=== PATIENT | male | born 1945 | race African-American/Black ===

== ENCOUNTER 2017-06-08 17:44 | Inpatient (IN) | payer OTHER ==
--- OUTSIDE RECORDS SUMMARY | 2017-06-08 17:46 | XMS REPORT | Clinical Summary ---
:1945 Author Organization [facility] Address [address] [place] [id number] Care Team Providers Name Role Phone Asked, No Pcp Primary Care Provider Unavailable Allergies No Known Allergies Current Medications No known medications Active Problems Not on file Social History Tobacco Use Types Packs/Day Years Used Date Never Smoker Alcohol Use Drinks/Week oz/Week Comments No Sex Assigned at Date Recorded Not on file Last Filed Vital Signs Not on file Plan of Treatment Health Maintenance Due Date Last Done Comments COLONOSCOPY 1997 ZOSTER VACCINE 2007 PNEUMOCOCCAL POLYSACCHARIDE VACCINE AGE 65 AND OVER 2012 PNEUMOCOCCAL-13 2012 INFLUENZA VACCINE 09/21/2017 Results Not on fileafter 06/07/2016 Insurance Payer Benefit Plan / Group Subscriber ID Type Phone Address AETNA AETNA PPO OPEN CHOICE xxxxxxxxxx PPO AETNA MEDICARE AETNA MEDICARE HMO/PPO MCR xxxxxxxxx HMO Home: [address] [phone] [place], [place] [phone]
[2017-06-08 18:38] LABS: Urine Appearance CLOUDY; Urine Bilirubin NEGATIVE (NEG); Urine Blood 3+ (NEG); Urine Color RED; Urine Glucose NEGATIVE (NEG); Urine Protein 3+ (NEG); Urine Urobilinogen 0.2 mg/dL (0.2-1.0); Urine pH 5.5 (5.0-7.0)
[2017-06-08 18:42] LABS: Urine Microscopic Reflex ORDER UMIC
[2017-06-08 18:44] LABS: Urine Bacteria <20 /HPF (NONE SEEN); Urine Culture Reflex Order REFLEXED; Urine RBC TNTC /HPF (NONE SEEN)
[2017-06-08] MEDS ORDERED: CIPROFLOXACIN 400mg IV 400 MG/200 ML BAG IV ONE (18:46)
[2017-06-08] MEDS ORDERED: FENTANYL CITR 100 MCG/2 ML ONE (18:46)
[2017-06-08] MEDS ORDERED: NA CHLORIDE 0.9% 2,000 ML ONE (18:46)
[2017-06-08] MEDS ORDERED: LIDOCAINE VISCOUS 2% SOLN 15 ML UDC ONE (18:46)
[2017-06-08 19:19] LABS: Absolute Lymphocytes (CBC) 0.3 K/uL (0.7-4.9); Absolute Monocytes 0.1 K/uL (0.1-1.3); Basophils % 0.2 % (0-1.3); Eosinophils % 0.4 % (0-4.4); Hematocrit 37.5 % (39.6-49.0); Lymphocytes % 4.3 % (15.3-44.8); MCH 25.8 pg (27.0-35.0); MPV 8.7 fL (7.6-11.3); Monocytes % 0.8 % (3.3-12.3); RBC Red Blood Cell Count 4.75 M/uL (4.33-5.43)
[2017-06-08 19:25] LABS: Protime INR 1.08
[2017-06-08 19:31] LABS: Bicarbonate 23 mEq/L (21-31); Glucose Level 166 mg/dL (65-120); Potassium 4.1 mEq/L (3.6-5.0); Sodium Level 132 mEq/L (135-145)
[2017-06-08 19:37] LABS: ALT/SGPT 20 IU/L (10-60); AST/SGOT 23 IU/L (10-42); Albumin 3.9 g/dL (3.2-5.5); Alkaline Phosphatase 41 IU/L (42-121); BUN Blood Urea Nitrogen 18 mg/dL (6-20); Bilirubin Direct < 0.1 mg/dL (0-0.2); Bilirubin Total 0.4 mg/dL (0.3-1.2); Creatine Phosphokinase 245 IU/L (22-269); Protein, Total 6.7 g/dL (6.0-8.3)
--- NOTE | 2017-06-08 20:04 | EDPHYS ---
Physician Documentation [facility] Name: Allan Cam Jr Age: 72 yrs Sex: Male : 1945 Arrival Date: 06/08/2017 Time: 17:46 Bed 18 Private MD: Tahira Edge H ED Physician Tomas Ozuna HPI: 06/08 18:59 This 72 yrs old Black Male presents to ER via Ambulatory with complaints of Urinary snw Problem. 18:59 The patient presents with urinary symptoms, dysuria, urinary frequency, incontinence of snw urine. Onset: The symptoms/episode began/occurred suddenly, at 01:00, and became worse and became persistent. Associated signs and symptoms: Pertinent positives: dysuria, fever, hematuria. Severity of symptoms: At their worst the symptoms were moderate, severe. The patient has not experienced similar symptoms in the past. The patient has not recently seen a physician, to have procedure per Dr. Weinberg tomorrow. Pt with prostate CA, several biopsies have been done. Daughter called Dr. Weinberg this am and was told to bring pt to ED. Historical: - Allergies: 17:54 No Known Allergies; hj - PMHx: 17:54 prostate cancer; Hypertension; Diabetes - NIDDM; hj - PSHx: 17:54 None; hj - Immunization history:: Adult Immunizations up to date. - Social history:: Smoking status: Patient/guardian denies using tobacco. ROS: 18:58 Eyes: Negative for injury, pain, redness, and discharge, ENT: Negative for injury, snw pain, and discharge, Neck: Negative for injury, pain, and swelling. 18:58 Cardiovascular: Negative for chest pain, palpitations, and edema, Respiratory: Negative for shortness of breath, cough, wheezing, and pleuritic chest pain, Abdomen/GI: Negative for abdominal pain, nausea, vomiting, diarrhea, and constipation, Back: Negative for injury and pain, MS/Extremity: Negative for injury and deformity, Skin: Negative for injury, rash, and discoloration, Neuro: Negative for headache, weakness, numbness, tingling, and seizure. 18:58 Constitutional: Positive for body aches, chills, fatigue, fever, malaise. 18:58 : Positive for urinary symptoms, urinary frequency, small amounts, hematuria, burning with urination. Exam: 18:58 Head/Face: Normocephalic, atraumatic. Eyes: Pupils equal round and reactive to light, snw extra-ocular motions intact. Lids and lashes normal. Conjunctiva and sclera are non-icteric and not injected. Cornea within normal limits. Periorbital areas with no swelling, redness, or edema. ENT: Nares patent. No nasal discharge, no septal abnormalities noted. Tympanic membranes are normal and external auditory canals are clear. Oropharynx with no redness, swelling, or masses, exudates, or evidence of obstruction, uvula midline. Mucous membranes moist. Neck: Trachea midline, no thyromegaly or masses palpated, and no cervical lymphadenopathy. Supple, full range of motion without nuchal rigidity, or vertebral point tenderness. No Meningismus. Chest/axilla: Normal chest wall appearance and motion. Nontender with no deformity. No lesions are appreciated. Cardiovascular: Regular rate and rhythm with a normal S1 and S2. No gallops, murmurs, or rubs. Normal PMI, no JVD. No pulse deficits. Respiratory: Lungs have equal breath sounds bilaterally, clear to auscultation and percussion. No rales, rhonchi or wheezes noted. No increased work of breathing, no retractions or nasal flaring. Abdomen/GI: Soft, non-tender, with normal bowel sounds. No distension or tympany. No guarding or rebound. No evidence of tenderness throughout. Back: No spinal tenderness. No costovertebral tenderness. Full range of motion. Skin: Warm, dry with normal turgor. Normal color with no rashes, no lesions, and no evidence of cellulitis. MS/ Extremity: Pulses equal, no cyanosis. Neurovascular intact. Full, normal range of motion. Neuro: Awake and alert, GCS 15, oriented to person, place, time, and situation. Cranial nerves II-XII grossly intact. Motor strength 5/5 in all extremities. Sensory grossly intact. Cerebellar exam normal. Normal gait. 18:58 Constitutional: The patient appears alert, awake. Vital Signs: 17:55 BP 127 / 62; Pulse 105; Resp 18; Temp 97.6(TE); Pulse Ox 97% on R/A; Weight 88.45 kg; hj Height 5 ft. 10 in. (177.80 cm); Pain 3/10; 18:23 BP 127 / 69; Pulse 102; Resp 20; Temp 97.2(TE); Pulse Ox 96% on R/A; mh5 19:00 BP 124 / 65; Pulse 95; Resp 20; Temp 100.5(O); Pulse Ox 96% on R/A; mh5 20:00 BP 123 / 63; Pulse 79; Pulse Ox 97% on R/A; bs1 21:00 BP 107 / 60; Pulse 88; Pulse Ox 97% on R/A; bs1 22:00 BP 111 / 58; Pulse 88; Pulse Ox 99% on R/A; bs1 22:52 BP 157 / 76; Pulse 74; Temp 99.1; Pulse Ox 100% on R/A; bs1 17:55 Body Mass Index 27.98 (88.45 kg, 177.80 cm) hj MDM: 18:04 Patient medically screened. snw 20:04 Data reviewed: vital signs, nurses notes. Data interpreted: Pulse oximetry: on room air snw is 96 %. Interpretation: normal. Counseling: I had a detailed discussion with the patient and/or guardian regarding: the historical points, exam findings, and any diagnostic results supporting the discharge/admit diagnosis, lab results, radiology results, the need for further work-up and treatment in the hospital. Physician consultation: Valerie Almanza MD was called at 20:04, was contacted at 20:04, regarding admission, to the medical/surgical unit. 06/08 18:19 Order name: UA; Complete Time: 18:49 em 06/08 18:19 Order name: Urine Microscopic Only; Complete Time: 18:49 em 06/08 18:29 Order name: Urine Culture snw 06/08 18:29 Order name: CPK snw 06/08 18:29 Order name: Basic Metabolic Panel snw 06/08 18:29 Order name: Blood Culture Adult (2) snw 06/08 18:29 Order name: BNP; Complete Time: 19:47 snw 06/08 18:29 Order name: CBC with Diff; Complete Time: 21:09 snw 06/08 18:29 Order name: Lactate; Complete Time: 19:40 snw 06/08 18:29 Order name: LFT's; Complete Time: 19:40 snw 06/08 18:29 Order name: Procalcitonin; Complete Time: 19:56 snw 06/08 18:29 Order name: Protime (+inr); Complete Time: 19:37 snw 06/08 18:29 Order name: Ptt, Activated; Complete Time: 19:37 snw 06/08 18:29 Order name: Sed Rate; Complete Time: 21:09 snw 06/08 18:29 Order name: Chest Single View XRAY; Complete Time: 20:12 snw 06/08 18:29 Order name: Accucheck; Complete Time: 19:39 snw 06/08 18:30 Order name: Urine Culture EDMS 06/08 18:30 Order name: Creatine Phosphokinase; Complete Time: 19:40 EDMS 06/08 18:30 Order name: Basic Metabolic Panel; Complete Time: 19:40 EDMS 06/08 20:13 Order name: US Rp Exam Complete snw 06/08 20:57 Order name: Manual Differential; Complete Time: 21:09 EDMS 06/08 21:25 Order name: US; Complete Time: 21:29 EDMS 06/08 18:29 Order name: Cardiac monitoring; Complete Time: 20:23 snw 06/08 18:29 Order name: EKG - Nurse/Tech; Complete Time: 20:23 snw 06/08 18:29 Order name: IV Saline Lock - Large Bore; Complete Time: 19:39 snw 06/08 18:29 Order name: Labs collected and sent; Complete Time: 19:39 snw 06/08 18:29 Order name: O2 Per Protocol; Complete Time: 19:39 snw 06/08 18:29 Order name: O2 Sat Monitoring; Complete Time: 19:39 snw 06/08 18:29 Order name: Urine Dipstick-Ancillary (obtain specimen); Complete Time: 19:39 snw 06/08 18:29 Order name: Three way - tamayo cath; Complete Time: 18:37 snw Administered Medications: 19:00 Drug: NS 0.9% (30 ml/kg) 30 ml/kg Route: IV; Rate: bolus; Site: right antecubital; em 21:51 Follow up: IV Status: Completed infusion bs1 19:00 Drug: fentaNYL (PF) 25 mcg Route: IVP; Site: right antecubital; iw 21:51 Follow up: Response: No adverse reaction bs1 19:15 Drug: Ciprofloxacin 400 mg Volume: 200 ml; Route: IVPB; Infused Over: 60 mins; Site: em right antecubital; 21:51 Follow up: IV Status: Completed infusion bs1 19:37 Drug: Viscous Lidocaine Liquid (4 %) 10 ml Route: Mucous Membrane; em 19:38 Follow up: Response: No adverse reaction em 20:22 Drug: Rocephin 1 grams Route: IV; Rate: calculated rate; Site: right antecubital; bs1 21:51 Follow up: IV Status: Completed infusion bs1 20:22 Drug: NS 0.9% 1000 ml Route: IV; Rate: 125 ml/hr; Site: right antecubital; bs1 22:37 Follow up: IV Status: Infusion continued upon admission bs1 20:32 Drug: Uromatic Irrigation - NS 0.9% 1 units {Note: tamayo irrigation.} Volume: 2000 ml; bs1 Route: IV; Rate: calculated rate; Site: Other; 22:37 Follow up: IV Status: Completed infusion bs1 Disposition: 06/08/17 20:03 Hospitalization ordered by Valerie Almanza for Inpatient Admission. Preliminary diagnosis are Sepsis, unspecified organism, Hematuria. - Bed requested for Telemetry/MedSurg (Inpatient). - Status is Inpatient Admission. bs1 - Condition is Stable. - Problem is new. - Symptoms are unchanged. UTI on Admission? Yes Addendum: 06/11/2017 06:23 Co-signature as Attending Physician, Tomas Ozuna MD Available for consultation at p s1 all times. . Signatures: Dispatcher [employer] EDMO Christine Duffy, HOMER-C TREATING PLANT OPERATOR-Csnw Lily Blount, RN RN Tree Barrera, LIFE SKILLS WORKER LIFE SKILLS WORKER em Meena Kaur RN BETTIE Osmin Lopez RN RN hj Singer, Phillip, MD MD [facility] Enriqueta Cook RN RN bs1 Corrections: (The following items were deleted from the chart) 06/08 18:52 18:43 Urine Microscopic Only ordered. EDMS EDMS
--- NOTE | 2017-06-08 20:04 | ER ---
Nurse's Notes [facility] Name: Allan Cam Jr Age: 72 yrs Sex: Male : 1945 Arrival Date: 06/08/2017 Time: 17:46 Bed 18 Private MD: Tahira Edge H Diagnosis: Sepsis, unspecified organism;Hematuria Presentation: 06/08 17:52 Presenting complaint: Patient states: i noticed fresh blood with clots last night in my hj pee; it hurts when i pee; reports fever and chills; hx of prostates cancer being followed up with a urologist;. Transition of care: patient was not received from another setting of care. Onset of symptoms was June 08, 2017. Initial Sepsis Screen: Does the patient meet any 2 criteria? No. Patient's initial sepsis screen is negative. Does the patient have a suspected source of infection? No. Patient's initial sepsis screen is negative. Care prior to arrival: None. 17:52 Method Of Arrival: Ambulatory 17:52 Acuity: MIO 3 hj Triage Assessment: 17:54 General: Appears in no apparent distress. uncomfortable, Behavior is calm, cooperative, hj appropriate for age. Pain: Complains of pain in pelvis Pain currently is 3 out of 10 on a pain scale. Historical: - Allergies: 17:54 No Known Allergies; hj - PMHx: 17:54 prostate cancer; Hypertension; Diabetes - NIDDM; hj - PSHx: 17:54 None; hj - Immunization history:: Adult Immunizations up to date. - Social history:: Smoking status: Patient/guardian denies using tobacco. Screenin:19 Abuse screen: Denies threats or abuse. Nutritional screening: No deficits noted. em Tuberculosis screening: No symptoms or risk factors identified. Fall Risk None identified. Assessment: 18:10 General: Appears in no apparent distress. uncomfortable, Behavior is calm, cooperative, em Reports chills for 0-12 hours, Denies fever. Pain: Complains of pain in pelvis Pain currently is 2 out of 10 on a pain scale. Quality of pain is described as burning, Pain began last night. Neuro: Level of Consciousness is awake, alert, obeys commands, Oriented to person, place, time, situation. Cardiovascular: Denies chest pain, Capillary refill < 3 seconds Patient's skin is warm and dry. Respiratory: Airway is patent Respiratory effort is even, unlabored, Respiratory pattern is regular, symmetrical, Breath sounds are clear bilaterally. GI: Abdomen is round non-distended, Patient currently denies nausea, vomiting. : Urine is jr blood, Reports burning with urination, since last night pain hematuria. EENT: No signs and/or symptoms were reported regarding the EENT system. Derm: Skin is intact, Skin is pink, warm \T\ dry. Musculoskeletal: Range of motion: intact in all extremities. 18:10 General: Reports called urologist this morning after bleeding and was instructed to go em to the ER and would be scene in the ER by urologist. 18:25 Reassessment: Patient appears in no apparent distress at this time. I agree with the iw above assessment by Tree Barrera LVN. 19:05 Reassessment: Report received by STORM Leavitt patient AOx3, no distress noted at this bs1 time. 20:05 Reassessment: Patient appears in no apparent distress at this time. No changes from bs1 previously documented assessment. Patient and/or family updated on plan of care and expected duration. Pain level reassessed. Patient is alert, oriented x 3, equal unlabored respirations, skin warm/dry/pink. 20:32 Reassessment: Started bladder irrigation, patient tolerating well, small clots noted in bs1 Tamayo bag. 20:41 Reassessment: Lab reported crital bands 15%, informed Hospitalist. bs1 21:30 Reassessment: Patient appears in no apparent distress at this time. No changes from bs1 previously documented assessment. Patient and/or family updated on plan of care and expected duration. Pain level reassessed. Patient is alert, oriented x 3, equal unlabored respirations, skin warm/dry/pink. Tamayo irrigation, tolerating well. 21:35 Reassessment: Per verbal order from CLINICAL SALES CONSULTANT Tati Medina to just give total of 2,000cc bs1 bolus of sepsis protocol instead of 600ml more. Gave order for maintenance fluids at 125ml/hr NS. Vital Signs: 17:55 BP 127 / 62; Pulse 105; Resp 18; Temp 97.6(TE); Pulse Ox 97% on R/A; Weight 88.45 kg; hj Height 5 ft. 10 in. (177.80 cm); Pain 3/10; 18:23 BP 127 / 69; Pulse 102; Resp 20; Temp 97.2(TE); Pulse Ox 96% on R/A; mh5 19:00 BP 124 / 65; Pulse 95; Resp 20; Temp 100.5(O); Pulse Ox 96% on R/A; mh5 20:00 BP 123 / 63; Pulse 79; Pulse Ox 97% on R/A; bs1 21:00 BP 107 / 60; Pulse 88; Pulse Ox 97% on R/A; bs1 22:00 BP 111 / 58; Pulse 88; Pulse Ox 99% on R/A; bs1 22:52 BP 157 / 76; Pulse 74; Temp 99.1; Pulse Ox 100% on R/A; bs1 17:55 Body Mass Index 27.98 (88.45 kg, 177.80 cm) ED Course: 17:46 Patient arrived in ED. mr 17:47 Tahira Edge DO is Private Physician. mr 17:54 Triage completed. hj 17:55 Arm band placed on right wrist. hj 18:03 Christine Duffy FNP-C [facility]. snw 18:03 Tomas Ozuna MD is Attending Physician. snw 18:16 Tree Barrera LVN is Primary Nurse. em 18:19 Patient has correct armband on for positive identification. Placed in gown. Bed in low em position. Call light in reach. Side rails up X 1. Adult w/ patient. 18:23 Urine Microscopic Only Sent. mh5 18:23 UA Sent. mh5 18:25 Urine collected: clean catch specimen, jr blood. mh5 18:55 Inserted saline lock: 20 gauge in right antecubital area, using aseptic technique. em Blood collected. 18:55 Initial lab(s) drawn, by me, sent to lab. First set of blood cultures drawn by me. em 18:55 No provider procedures requiring assistance completed. em 19:03 Pillow given. Pulse ox on. NIBP on. mh5 19:10 Second set of blood cultures drawn by me. em 19:30 3-way catheter inserted, using sterile technique, 20 Fr. Specimen obtained. Returned em bloody urine. 19:37 Notified Nurse Practitioner and/or Physician Back Maker of a critical lab result(s), kl Lactate 21.5. 20:02 Chest Single View XRAY In Process Unspecified. EDMS 20:03 Valerie Almanza MD is Hospitalizing Provider. snw 20:10 Urine Culture Sent. cc 20:10 Urine Culture Sent. cc 20:44 Ultrasound completed. Patient tolerated well. cy 20:57 Notified the Hospitalist of a critical lab result(s), Bands 15% Notified Dr Joel. bs1 23:02 Patient admitted, IV remains in place. intact. bs1 Administered Medications: 19:00 Drug: NS 0.9% (30 ml/kg) 30 ml/kg Route: IV; Rate: bolus; Site: right antecubital; em 21:51 Follow up: IV Status: Completed infusion bs1 19:00 Drug: fentaNYL (PF) 25 mcg Route: IVP; Site: right antecubital; iw 21:51 Follow up: Response: No adverse reaction bs1 19:15 Drug: Ciprofloxacin 400 mg Volume: 200 ml; Route: IVPB; Infused Over: 60 mins; Site: em right antecubital; 21:51 Follow up: IV Status: Completed infusion bs1 19:37 Drug: Viscous Lidocaine Liquid (4 %) 10 ml Route: Mucous Membrane; em 19:38 Follow up: Response: No adverse reaction em 20:22 Drug: Rocephin 1 grams Route: IV; Rate: calculated rate; Site: right antecubital; bs1 21:51 Follow up: IV Status: Completed infusion bs1 20:22 Drug: NS 0.9% 1000 ml Route: IV; Rate: 125 ml/hr; Site: right antecubital; bs1 22:37 Follow up: IV Status: Infusion continued upon admission bs1 20:32 Drug: Uromatic Irrigation - NS 0.9% 1 units {Note: tamayo irrigation.} Volume: 2000 ml; bs1 Route: IV; Rate: calculated rate; Site: Other; 22:37 Follow up: IV Status: Completed infusion bs1 Outcome: 20:03 Decision to Hospitalize by Provider. snw 23:30 Admitted to Tele accompanied by tech, via wheelchair, room 426, with chart, Report bs1 called to BETTIE Camacho 23:30 Condition: stable 23:30 Instructed on the need for admit, Demonstrated understanding of instructions. 23:31 Patient left the ED. bs1 Signatures: Dispatcher [employer] Lori Aranda, RN RN Christine Montero, MANAGER TRADING-C MANAGER TRADING-Csnw Marlene Serrano, Tree, FIRST AID DIRECTOR FIRST AID DIRECTOR Meena Ny, RN RN Whitney Del Real Henry, BETTIE Orantes [place] [id number] Enriqueta Cook RN RN bs Gallo Pagan Corrections: (The following items were deleted from the chart) 17:57 17:55 Pulse 105bpm; Resp 18bpm; Pulse Ox 97% RA; Temp 97.6F Temporal; 88.45 kg; Height hj 5 ft. 10 in.; BMI: 27.9; Pain 3/10; hj 19:03 18:23 BP 127 / 69; Pulse 102bpm; Resp 20bpm; Pulse Ox 96% RA; Temp 97.2F Oral; mh5 mh5 22:40 21:35 Reassessment: Per verbal order from MESSI Medina to just give total of bs1 2,000cc bolus of sepsis protocol instead of 600ml more. Gave order for maintenance fluids at 125ml/hr NS bs1 23:30 23:01 Condition: stable bs1 bs 23:30 23:01 Admitted to Tele accompanied by tech, via wheelchair, room 426, with chart, bs1 Report called to BETTIE Camacho bs1 23:30 23:01 Instructed on the need for admit, Demonstrated understanding of instructions, bs1 bs1
[2017-06-08] MEDS ORDERED: NA CHLORIDE 0.9% 1,000 ML ONE (20:06)
[2017-06-08] MEDS ORDERED: CEFTRIAXONE/SWI 1gm 1 GM/10 ML SYR ONE (20:06)
--- NOTE | 2017-06-08 20:09 | RAD REPORT ---
EXAM DESCRIPTION: RAD - Chest Single View - 06/08/2017 8:02 pm CLINICAL HISTORY: Fever, chills, hematuria COMPARISON: None. TECHNIQUE: AP portable chest image was obtained 1955 hours . FINDINGS: Lung volumes are low. This accentuates lung markings. No focal consolidation. No significa nt interstitial infiltrate suspected. Heart size is accentuated by shallow inspiration. Trachea is mi dline. Vasculature also accentuated by the shallow inspiration and body habitus. No measurable pleura l effusion and no pneumothorax. No gross bony abnormality seen. No acute aortic findings suspected. IMPRESSION: Heart, vasculature and lung markings are accentuated by body habitus and shallow inspira tion. True infiltrate, failure or volume overload are doubtful.
[2017-06-08] MEDS ORDERED: NACL 0.9% IRR SOLN 0 ML IRR ONE (20:17)
[2017-06-08 20:56] LABS: Blood Morphology Comment NOT SEEN (NOT SEEN); Platelet Estimate ADEQ
--- NOTE | 2017-06-08 21:03 | P.HP ---
Certification for Inpatient Patient admitted to: Inpatient With expected LOS: >2 Midnights Practitioner: I am a practitioner with admitting privileges, knowledge of patient current condition, hospital course, and medical plan of care. Services: Services provided to patient in accordance with Admission requirements found in Title 42 Section 412.3 of the Code of Federal Regulations Patient History Date of Service: 06/08/17 Reason for admission: gross hematuria History of Present Illness: Mr Cam is a 72 years old male with history of prostate cancer, followed up by Dr Weinberg, HTN, DM II, who was in his works last night when he noticed some burning urination initially. Then he had blood in his urine, and subsequently clots. He had fever as well 100.5 F at home. At arrival the patient was afebrile , but then he spiked fever in ED. BP WNL, Lab work remarkable for normal WBC count, however, has 15% bands, procalcitonin elevated as well. He denied SOB, abdominal pain or chest pain. No history of nausea, vomiting or diarrhea. Allergies No Known Allergies Allergy (Unverified 06/08/17 20:46) - Past Medical/Surgical History -: prostate cancer -: DM II -: HTN Past Surgical History: Patient denies surgical history - Family History Family History: Reviewed- Non-Contributory - Social History Smoking Status: Former smoker Alcohol use: No CD- Drugs: No Place of Residence: Home Review of Systems 10-point ROS is otherwise unremarkable Physical Examination - Physical Exam General: Alert, In no apparent distress HEENT: Atraumatic, PERRLA, Mucous membr. moist/pink, EOMI, Sclerae nonicteric Neck: Supple, 2+ carotid pulse no bruit, No LAD, Without JVD or thyroid abnormality Respiratory: Clear to auscultation bilaterally, Normal air movement Cardiovascular: Regular rate/rhythm, Normal S1 S2 Gastrointestinal: Normal bowel sounds, No tenderness Musculoskeletal: No tenderness Integumentary: No rashes Neurological: Normal speech, Normal strength at 5/5 x4 extr, Normal tone, Normal affect Lymphatics: No axilla or inguinal lymphadenopathy Urinary: Mcgee catheter, Other (gross hematuria noted) - Studies Laboratory Data (last 24 hrs) 06/08/17 18:55: PT 12.7 H, INR 1.08, APTT 26.5 06/08/17 18:55: WBC 7.5, Hgb 12.3 L, Hct 37.5 L, Plt Count 193 06/08/17 18:55: B-Natriuretic Peptide 33 06/08/17 18:55: Sodium 132 L, Potassium 4.1, BUN 18, Creatinine 1.19, Glucose 166 H, Total Bilirubin 0.4, AST 23, ALT 20, Alkaline Phosphatase 41 L Assessment and Plan - Problems (Diagnosis) (1) Prostate cancer Current Visit: Yes Status: Acute (2) Gross hematuria Current Visit: Yes Status: Acute (3) HTN (hypertension) Current Visit: Yes Status: Acute (4) Diabetes mellitus Current Visit: Yes Status: Acute Qualifiers: Diabetes mellitus type: type 2 Diabetes mellitus termite helper insulin use: without group home use Diabetes mellitus complication status: with unspecified complications Qualified Code(s): E11.8 - Type 2 diabetes mellitus with unspecified complications (5) Blood loss anemia Current Visit: Yes Status: Acute - Plan Mr Cam will be admitted to the hospital due to gross hematuria, in context of prostate cancer history. He is hemodynamically stable. Will cover with IV Rocephin. Consult Dr Weinberg, in the meantime will be on continue bladder irrigation. Will monitor HH closely. The patient is anemic, possible due to blood loss. No needs for blood transfusion at the moment. - Advance Directives Does patient have a Living Will: No Does patient have a Durable POA for Healthcare: No - Code Status/Comfort Care Code Status Assessed: Yes Code Status: Full Code
--- NOTE | 2017-06-08 21:24 | RAD REPORT ---
EXAM DESCRIPTION: US - Renal Ultrasound-Complete - 06/08/2017 8:47 pm CLINICAL HISTORY: Hematuria COMPARISON: None. FINDINGS: The right kidney measures 11.4 x 5.5 x 5.7 cm. The left kidney measures 11.5 x 6.3 x 5.4 cm. Renal cortical thickness and echogenicity are normal. No hydronephrosis or suspicious renal mass. A benign thin-walled anechoic cyst lower pole right kidney present 2.6 cm in size. IMPRESSION: No hydronephrosis or suspicious renal mass. Benign 2.6 cm cyst lower pole right kidney.
[2017-06-08] MEDS: INSULIN -REGULAR HUMAN 50 UNIT/0.5 ML ML SQ SCH (23:08)
[2017-06-08] MEDS: NA CHLORIDE 0.9% 1,000 ML IV SCH (23:08)
[2017-06-08] MEDS ORDERED: ACETAMINOPHEN 500 MG TAB PO PRN (23:08)
[2017-06-08] MEDS ORDERED: ONDANSETRON 4 MG/2 ML VIAL IV PRN (23:08)
[2017-06-09] MEDS: SODIUM CHL 0.9% IRR SOLN 2000 ML IRR SCH ×3 (00:33→18:01)
[2017-06-09 03:02] VITALS: BMI 27.9
[2017-06-09 04:51] LABS: Absolute Monocytes 0.6 K/uL (0.1-1.3); Absolute Neutrophil 9.5 K/uL (1.8-8.0); Basophils % 0.3 % (0-1.3); Eosinophils % 0.2 % (0-4.4); Hematocrit 35.2 % (39.6-49.0); Lymphocytes % 9.2 % (15.3-44.8); MCH 25.8 pg (27.0-35.0); MPV 8.7 fL (7.6-11.3); Monocytes % 5.1 % (3.3-12.3)
[2017-06-09 05:03] LABS: Potassium 4.5 mEq/L (3.6-5.0)
[2017-06-09] MEDS: NA CHLORIDE 0.9% 1,000 ML IV SCH ×3 (05:53→18:00)
[2017-06-09] MEDS: INSULIN -REGULAR HUMAN 50 UNIT/0.5 ML ML SQ SCH ×4 (07:30→21:09)
[2017-06-09] MEDS ORDERED: CEFTRIAXONE 1 GM/NS 50 ML 1 GM/50 ML BAG IV SCH (09:00)
--- NOTE | 2017-06-09 09:16 | EKG ---
Test Date: 2017-06-08 Test Time: 20:16:17 Roll Dough Divider: CELINA MEASUREMENT RESULTS: Intervals: Rate: 89 GA: 144 QRSD: 74 QT: 334 QTc: 406 [place]: P: 57 GA: 144 QRS: -4 T: 23 INTERPRETIVE STATEMENTS: Normal sinus rhythm Normal ECG Compared to ECG 05/22/1999 06:56:00 ST (T wave) deviation no longer present Electronically Signed On 06-09-17 09:13:56 CDT by Carlo Jones
[2017-06-09] MEDS: CEFTRIAXONE/SWI 1gm 1 GM/10 ML SYR IV SCH (10:49)
[2017-06-09] MEDS: TAMSULOSIN 0.4 MG SR CAP PO SCH (13:27)
[2017-06-09] MEDS: hydroCHLOROthiazide 25 MG TAB PO SCH (13:29)
[2017-06-09] MEDS: LOSARTAN POTASSIUM 50 MG TABLET PO SCH (13:30)
[2017-06-09 15:42] VITALS: O2SAT 96
--- NOTE | 2017-06-09 17:04 | PN ---
Date of Progress Note: 06/09/2017 Subjective: The patient seen and examined, chart reviewed, and case discussed with RN. The patient states, his hematuria is better. He is still having some pain around his suprapubic region. The pat ient is on bladder irrigation. Review of Systems: Negative except as above. Medications: Reviewed. Physical Examination: Vital signs: T-max 100.5, heart rate 178, blood pressure 127/60, respirations 20, and O2 96% on room air. General: Awake, alert, oriented x3, in some mild distress. Elderly male, ill appearing. CV: S1, S2. No murmurs. Regular rate and rhythm. Peripheral pulses present. Respiratory: Moving air well bilaterally. No wheezing. Gastrointestinal: Abdomen is soft, nontender, nondistended. Positive bowel sounds. No guarding or rigidity. Extremities: No clubbing, cyanosis, or edema. Neurologic: Nonfocal. Laboratory Data: Sodium 138, potassium 4.5, chloride 109, CO2 24, BUN 12, creatinine 1.12, and gluco se 176. Lactate 16.2, calcium 8.6. Procalcitonin 8.7. WBC 11.2, H and H 11.4, 35.2, platelets 172, and neutrophils 85%. No bands. blood cultures pending. Urine culture 4+ gram-negative rods. Repe at blood culture also showing preliminary gram-negative rods. Assessment: A 72-year-old male with; 1.Sepsis secondary to gram-negative rods. 2.Hematuria, improved with bladder irrigation. The patient does have prostate cancer. We will disc uss with Dr. Weinberg. 3.Recently diagnosed prostate cancer. Currently under the care of Dr. Weinberg. 4.Diabetes mellitus type 2 without long-term use of insulin, no complications. Continue sliding sca le insulin and Accu-Cheks. 5.Acute blood loss anemia. We will continue to monitor H and H, transfuse as needed. Plan: Follow up on blood culture results, also ID and sensitivity. Continue IV antibiotics. Resume home medications as appropriate. Gastrointestinal and deep venous thrombosis prophylaxis with PPI a nd SCDs. No anticoagulation due to hematuria. SA/MODL Voice ID: [id number] Report ID: [id number]
--- NOTE | 2017-06-09 18:49 | CON ---
History Of Present Illness: This is a 72-year-old gentleman with diabetes out of control. His A1c is 8.8. He was counseled last week when he was seen in the office for dysuria with a negative UA. KUB was negative for stone. Post void residual 53. He went home. Dysuria continued. He started having some pink hematuria yesterday when he called the office. He was schedule to come see me today, but he began having clot, so he was sent to the emergency room where came in and 3-way catheter was placed. He was irrigated out. Urine is pretty clear today. However, he is growing gram-negative rods in his urine. We will wait for the final culture to come back. I have counseled he and the about diabetic control, low carb diet and exercise and eating more green vegetables and fruits rather than high fat salty meals and desserts. He said, he is going to change. His PSA was 9.6 in April 2017. He had a history of low- grade prostate cancer, which is stable. Review of Systems: As mentioned above. Past Medical History: Diabetes, hypertension, and prostate cancer. Past Surgical History: Cyst removed from neck and skin tag removed. Family History: Mother had hernia surgery. Immunizations: Up-to-date. Social History: No smoking. No alcohol. No drug use. Medications: Losartan, glyburide, aspirin, and Protonix. Allergies: NO KNOWN DRUG ALLERGIES. Physical Examination: Vital signs: T-max 100.5, 72 pulse, 20 respirations, BP 143/67, and sats 96%. HEENT: Atraumatic, normocephalic. Lungs: Clear. Heart: S1, S2. Abdomen: Soft. : Penis with a 3-way Mcgee catheter. Testicles are normal. MONY deferred at this time. Laboratory Data: Laboratories show gram-negative rods growing in his urine. White count 11.2, H and H 11 and 35, and platelet count 172. Coagulation is normal. Chemistries show sodium 138, potassium 4.5, chloride 109, carbon dioxide 24, BUN 12, creatinine 1.1 GFR 79, and glucose 176, and calcium 8.6. Assessment: Urinary tract infection, hemorrhagic cystitis. Plan: Continue irrigation. Continue Mcgee catheter drainage. Await for final culture and sensitivity to come back in order to adjust his antibiotic. PB/MODL Voice ID: [id number] Report ID: [id number] JOAN
[2017-06-09] MEDS: RANITIDINE 150 MG TABLET PO SCH (21:09)
[2017-06-10] MEDS: NA CHLORIDE 0.9% 1,000 ML IV SCH (04:50)
[2017-06-10] MEDS: INSULIN -REGULAR HUMAN 50 UNIT/0.5 ML ML SQ SCH ×2 (07:30→11:30)
[2017-06-10] MEDS: CEFTRIAXONE/SWI 1gm 1 GM/10 ML SYR IV SCH (09:25)
[2017-06-10] MEDS: LOSARTAN POTASSIUM 50 MG TABLET PO SCH (09:25)
[2017-06-10] MEDS: TAMSULOSIN 0.4 MG SR CAP PO SCH (09:25)
[2017-06-10] MEDS: hydroCHLOROthiazide 25 MG TAB PO SCH (09:25)
[2017-06-10] MEDS: RANITIDINE 150 MG TABLET PO SCH (09:26)
[2017-06-10 10:14] LABS: Absolute Lymphocytes (CBC) 0.9 K/uL (0.7-4.9); Absolute Monocytes 0.9 K/uL (0.1-1.3); Basophils % 0.2 % (0-1.3); Eosinophils % 3.3 % (0-4.4); Hematocrit 31.7 % (39.6-49.0); Lymphocytes % 9.4 % (15.3-44.8); MCV 79.6 fL (80-100); MPV 8.3 fL (7.6-11.3); Monocytes % 9.6 % (3.3-12.3); RBC Red Blood Cell Count 3.99 M/uL (4.33-5.43)
[2017-06-10 10:24] LABS: Potassium 3.6 mEq/L (3.6-5.0)
[2017-06-10 13:15] VITALS: BP 149/70; TEMP 97.4
--- NOTE | 2017-06-10 18:45 | PN ---
Subjective: The patient feels great, doing well. Objective: Urine is still clear. Urine culture came back E. coli and pansensitive. Assessment: Gross hematuria, secondary to Escherichia coli. Plan: Discontinue three-way Mcgee catheter. The patient can void and then go home. He can resume h is aspirin. He can go to work on Tuesday. He will be given a prescription for Ceftin 500 b.i.d. for 7 days. He can follow up with me as needed. TASHI/LIBERTY Voice ID: [id number] Report ID: [id number]
--- NOTE | 2017-06-11 07:07 | DS ---
Date of Discharge: 06/10/2017 Consultants: Dr. Weinberg, Urology. Procedures: None. Admitting Diagnoses: 1.Sepsis. 2.Urinary tract infection. 3.Diabetes mellitus type 2. 4.Gross hematuria. 5.Essential hypertension. 6.Prostate cancer. 7.Blood loss anemia. Discharge Diagnoses: 1.Sepsis secondary to Escherichia coli urinary tract infection. 2.Gross hematuria secondary to prostate cancer, resolved. 3.Recently diagnosed prostate cancer. 4.Diabetes mellitus type 2 without long-term use of insulin. No complications. 5.Acute blood loss anemia. H and H stable. 6.Urinary tract infection, acute cystitis secondary to Escherichia coli with hematuria. Hospital Course: The patient is a 72-year-old male who was recently diagnosed with prostate cancer u nder Dr. Weinberg's care, who had some burning urination, has uncontrolled diabetes. The patient was fo und to have fever at home, came into the ER for further evaluation. He was found to have UTI with gr oss hematuria. The patient was also found to be septic, had bandemia with elevated procalcitonin lev el. The patient was started on IV fluids and IV antibiotics. Renal ultrasound was done which showed 2.6 cm lower pole right kidney cyst. No hydronephrosis or renal mass. The patient was seen by Dr. Weinberg, but he was placed on bladder irrigation. His hematuria resolved. His white count also improv ed. He was no longer septic. His vital signs remained stable. He was afebrile. The patient's urin e culture grew out E. coli, which was essentially pansensitive. His blood cultures are pending at th is time. The patient was then cleared for discharge from Urology standpoint and was sent home in a s table condition. Medications: As per medication reconciliation list. Followup: Follow up with primary care physician in 2-3 days. Follow up with Dr. Weinberg, urologist, i n 1-2 weeks. Return to ER for worsening condition. Diet: Heart healthy. Activity: As tolerated. Total time spent discharging the patient was 37 minutes. Physical Examination: General: Awake, alert, oriented, no acute distress. CV: S1, S2. No murmurs. Respiratory: Moving air well bilaterally. No wheezing. Abdomen: Soft, nontender, nondistended. Positive bowel sounds. Extremities: No clubbing, cyanosis, or edema. Neurologic: Nonfocal. SA/MODL Voice ID: [id number] Report ID: [id number]
== END 2017-06-10 14:59 | disposition home or self-care (01) | DRG 872 ==
LOC: ER 17:44 → ERHOLD 20:11 → 4TH 22:37
PROVIDERS: ADMIT Internal Medicine; ATTEND Internal Medicine
DX: A41.51 Sepsis due to Escherichia coli [E. coli] (principal); D62 Acute posthemorrhagic anemia; N30.01 Acute cystitis with hematuria; C61 Malignant neoplasm of prostate; E11.9 Type 2 diabetes mellitus without complications; I10 Essential (primary) hypertension
CPT/HCPCS: 36415; 71045; 76770; 80048; 80076; 81003; 81015; 82550; 82962; 83605; 83880; 84145; 85025; 85610; 85652; 85730; 87040; 87077; 87086; 87088; 87186; 87205; 93005; 99285; J0696; J0744; J3010; J7030

== ENCOUNTER 2021-08-19 19:18 | Inpatient (IN) | payer OTHER ==
[2021-08-19] MEDS ORDERED: MORPHINE 4 MG/ML SYR ONE ×2 (21:23→23:50)
[2021-08-19] MEDS ORDERED: ONDANSETRON 4 MG/2 ML VIAL ONE (21:23)
[2021-08-19 21:42] LABS: Absolute Lymphocytes (CBC) 1.4 K/uL (0.7-4.9); Hematocrit 35.5 % (39.6-49.0); Lymphocytes % 10.9 % (15.3-44.8); MCV 81.2 fL (80-100); MPV 8.2 fL (7.6-11.3); RBC Red Blood Cell Count 4.38 M/uL (4.33-5.43)
[2021-08-19 22:02] LABS: Albumin 3.9 g/dL (3.4-5.0); Bilirubin Total 0.2 mg/dL (0.2-1.0); Potassium 4.2 mmol/L (3.5-5.1); Protein, Total 7.3 g/dL (6.4-8.2)
[2021-08-19 23:53] LABS: Urine Blood Negative (Negative); Urine Glucose Trace (Negative); Urine Protein 2+ (Negative); Urine Specific Gravity >=1.030 (1.005-1.030); Urine pH 5.5 (5.0-7.0)
[2021-08-20] MEDS ORDERED: NA CHLORIDE 0.9% 1,000 ML ONE ×2 (00:01→14:21)
--- NOTE | 2021-08-20 00:20 | ER ---
Nurse's Notes [facility] Name: Allan Cam Jr Age: 76 yrs Sex: Male : 1945 Arrival Date: 08/19/2021 Time: 19:20 Bed 26 Private MD: Diagnosis: Incarcerated Inguinal hernia - right side Presentation: 08/19 19:45 Chief complaint: Patient states: lower abdominal pain since 1700 this evening. C/O ld1 nausea. Coronavirus screen: At this time, the client does not indicate any symptoms associated with coronavirus-19. Ebola Screen: No symptoms or risks identified at this time. Initial Sepsis Screen: Does the patient meet any 2 criteria? No. Patient's initial sepsis screen is negative. Does the patient have a suspected source of infection? No. Patient's initial sepsis screen is negative. Risk Assessment: Do you want to hurt yourself or someone else? Patient reports no desire to harm self or others. Onset of symptoms was August 19, 2021. 19:45 Method Of Arrival: Wheelchair ld1 19:45 Acuity: MIO 3 ld1 Triage Assessment: 19:45 General: Appears in no apparent distress. uncomfortable, Behavior is calm, cooperative, ld1 appropriate for age. Pain: Complains of pain in abdomen Pain does not radiate. Pain currently is 10 out of 10 on a pain scale. Quality of pain is described as throbbing, Pain began 2 hours ago. EENT: No signs and/or symptoms were reported regarding the EENT system. Neuro: Level of Consciousness is awake, alert, obeys commands, Oriented to person, place, time, situation, Cardiovascular: Capillary refill < 3 seconds Patient's skin is warm and dry. Rhythm is. Respiratory: Airway is patent Respiratory effort is even, unlabored. GI: Abdomen is round non-distended, Reports lower abdominal pain, nausea. Historical: - Allergies: 19:45 No Known Allergies; ld1 - PMHx: 19:45 Diabetes - NIDDM; Hypertension; Prostate Cancer; ld1 - PSHx: 19:45 None; ld1 - Immunization history:: Adult Immunizations up to date, Client reports receiving the 2nd dose of the Covid vaccine. - Social history:: Smoking status: Patient denies any tobacco usage or history of. Patient/guardian denies using alcohol. Screenin:59 Abuse screen: Denies threats or abuse. Nutritional screening: No deficits noted. ll3 Tuberculosis screening: No symptoms or risk factors identified. Fall Risk No fall in past 12 months (0 pts). No secondary diagnosis (0 pts). IV access (20 points). Ambulatory Aid- None/Bed Rest/Nurse Assist (0 pts). Gait- Normal/Bed Rest/Wheelchair (0 pts) Mental Status- Oriented to own ability (0 pts). Total Hurd Fall Scale indicates No Risk (0-24 pts). Assessment: 21:00 General: Appears uncomfortable, Behavior is calm, cooperative. Pain: Complains of pain ll3 in abdomen Pain currently is 10 out of 10 on a pain scale. Neuro: Level of Consciousness is awake, alert, obeys commands, Oriented to person, place, time, situation. Respiratory: Respiratory effort is even, unlabored, Respiratory pattern is regular, symmetrical. GI: Bowel sounds present X 4 quads. Abd is soft X 4 quads Abdomen is tender to palpation in right lower quadrant Reports lower abdominal pain, upper abdominal pain, nausea. 22:00 Reassessment: No changes from previously documented assessment. Patient and/or family ll3 updated on plan of care and expected duration. Pain level reassessed. Patient is alert, oriented x 3, equal unlabored respirations, skin warm/dry/pink. 23:57 Reassessment: No changes from previously documented assessment. Patient and/or family ll3 updated on plan of care and expected duration. Pain level reassessed. Patient is alert, oriented x 3, equal unlabored respirations, skin warm/dry/pink. 08/20 01:15 Reassessment: No changes from previously documented assessment. Patient and/or family ll3 updated on plan of care and expected duration. Pain level reassessed. Patient is alert, oriented x 3, equal unlabored respirations, skin warm/dry/pink. Vital Signs: 08/19 19:45 BP 189 / 72; Pulse 56; Resp 18; Temp 98.6(TE); Pulse Ox 99% on R/A; Weight 77.11 kg; ld1 Height 5 ft. 9 in. (175.26 cm); Pain 10/10; 21:30 BP 155 / 65; Pulse 65; Resp 14; Pulse Ox 100% on R/A; ll3 23:00 BP 150 / 50; Pulse 64; Resp 15; Pulse Ox 100% on R/A; ll3 23:57 BP 139 / 54; Pulse 60; Resp 14; Pulse Ox 100% on R/A; ll3 08/20 01:15 BP 156 / 62; Pulse 58; Resp 16; Pulse Ox 100% on R/A; ll3 02:15 BP 158 / 63; Pulse 58; Resp 16; Pulse Ox 100% on R/A; ll3 08/19 19:45 Body Mass Index 25.10 (77.11 kg, 175.26 cm) ld1 ED Course: 08/19 19:20 Patient arrived in ED. bp1 19:45 Arm band placed on right wrist. ld1 19:47 Triage completed. ld1 21:34 Odalis Pro F[facility]-C [facility]. kb 21:34 John Dee MD is Attending Physician. kb 21:50 Inserted saline lock: 22 gauge in right antecubital area, using aseptic technique. ds4 Blood collected. 22:10 Abdomen In Process Unspecified. EDMS 23:39 Johana Amanda, BETTIE is Primary Nurse. ll3 23:59 Patient has correct armband on for positive identification. Bed in low position. Call ll3 light in reach. Side rails up X 1. 23:59 No provider procedures requiring assistance completed. ll3 08/20 00:18 Domingo Howe MD is Hospitalizing Provider. kb 00:43 COVID-19 SARS RT PCR (Document "Date of Onset" if Symptomatic) Sent. ll3 02:28 Patient admitted, IV remains in place. ll3 Administered Medications: 08/19 21:30 Drug: Zofran (Ondansetron) 4 mg Route: IVP; Site: right antecubital; ld1 23:53 Follow up: Response: No adverse reaction; Marked relief of symptoms ll3 21:30 Drug: morphine 4 mg Route: IVP; Infused Over: 4 mins; Site: right antecubital; ld1 23:53 Follow up: Response: No adverse reaction; Marked relief of symptoms ll3 23:50 Drug: morphine 4 mg Route: IVP; Infused Over: 4 mins; Site: right antecubital; ll3 08/20 00:43 Follow up: Response: No adverse reaction ll3 00:00 Drug: NS 0.9% 1000 ml Route: IV; Rate: 1 bolus; Site: right antecubital; ll3 01:50 Follow up: Response: No adverse reaction; IV Status: Completed infusion; IV Intake: ll3 1000ml 00:35 Drug: Zosyn (piperacillin-tazobactam) 3.375 grams Route: IVPB; Infused Over: 60 mins; ll3 Site: right antecubital; 01:49 Follow up: Response: No adverse reaction; IV Status: Completed infusion; IV Intake: ll3 100ml Medication: 02:28 VIS not applicable for this client. ll3 Intake: 01:49 IV: 100ml; Total: 100ml. ll3 01:50 IV: 1000ml; Total: 1100ml. ll3 Outcome: 00:19 Decision to Hospitalize by Provider. kb 02:33 Admitted to Med/surg accompanied by nurse, via stretcher, room 201, with chart, Report ll3 called to BETTIE Sierra 02:33 Condition: stable 02:33 Discharge instructions given to patient, Instructed on the need for admit, Demonstrated understanding of instructions. 02:53 Patient left the ED. ld1 Signatures: Dispatcher [employer] EDMS Odalis Pro, PHYSICIAN PRACTICE MARKET MANAGER-C PHYSICIAN PRACTICE MARKET MANAGER-Ckb Placido Medina ds4 Enriqueta Parisi Lauren, RN RN ld1 Johana Amanda, BETTIE RN ll3 Corrections: (The following items were deleted from the chart) 01:49 01:49 Reassessment: No changes from previously documented assessment. Patient and/or ll3 family updated on plan of care and expected duration. Pain level reassessed. Patient is alert, oriented x 3, equal unlabored respirations, skin warm/dry/pink. ll3 02:27 06/29 21:30 Reassessment: No changes from previously documented assessment. Patient ll3 and/or family updated on plan of care and expected duration. Pain level reassessed. Patient is alert, oriented x 3, equal unlabored respirations, skin warm/dry/pink. ll3
--- NOTE | 2021-08-20 00:20 | EDPHYS ---
Physician Documentation [facility] Name: Allan Cam Jr Age: 76 yrs Sex: Male : 1945 Arrival Date: 08/19/2021 Time: 19:20 Bed 26 Private MD: ED Physician John Dee HPI: 08/19 23:48 This 76 yrs old Black Male presents to ER via Wheelchair with complaints of Abdominal kb Pain. 23:48 The patient presents with abdominal pain suprapubic. Onset: The symptoms/episode kb began/occurred today, at 17:00. The symptoms do not radiate. Associated signs and symptoms: Pertinent positives: dysuria, Pertinent negatives: nausea, vomiting, and diarrhea, fever. The symptoms are described as constant. Modifying factors: The symptoms are alleviated by nothing, the symptoms are aggravated by nothing. Severity of pain: At its worst the pain was moderate in the emergency department the pain is unchanged. The patient has not experienced similar symptoms in the past. The patient has not recently seen a physician. Historical: - Allergies: 19:45 No Known Allergies; ld1 - PMHx: 19:45 Diabetes - NIDDM; Hypertension; Prostate Cancer; ld1 - PSHx: 19:45 None; ld1 - Immunization history:: Adult Immunizations up to date, Client reports receiving the 2nd dose of the Covid vaccine. - Social history:: Smoking status: Patient denies any tobacco usage or history of. Patient/guardian denies using alcohol. ROS: 23:47 Constitutional: Negative for fever, chills, and weight loss. kb 23:47 Abdomen/GI: Positive for abdominal pain, Negative for nausea, vomiting, and diarrhea. 23:47 : Positive for burning with urination. 23:47 All other systems are negative. Exam: 23:48 Constitutional: This is a well developed, well nourished patient who is awake, alert, kb and in no acute distress. Head/Face: Normocephalic, atraumatic. ENT: Moist Mucous membranes Cardiovascular: Regular rate and rhythm with a normal S1 and S2. No gallops, murmurs, or rubs. No pulse deficits. Respiratory: Respirations even and unlabored. No increased work of breathing. Talking in full sentences Skin: Warm, dry with normal turgor. Normal color. MS/ Extremity: Pulses equal, no cyanosis. Neurovascular intact. Full, normal range of motion. Neuro: Awake and alert, GCS 15, oriented to person, place, time, and situation. Moves all extremities. Normal gait. Psych: Awake, alert, with orientation to person, place and time. Behavior, mood, and affect are within normal limits. 23:48 Abdomen/GI: Inspection: abdomen appears normal, Bowel sounds: normal, Palpation: soft, in all quadrants, mild abdominal tenderness, in the suprapubic area. Vital Signs: 19:45 BP 189 / 72; Pulse 56; Resp 18; Temp 98.6(TE); Pulse Ox 99% on R/A; Weight 77.11 kg; ld1 Height 5 ft. 9 in. (175.26 cm); Pain 10/10; 21:30 BP 155 / 65; Pulse 65; Resp 14; Pulse Ox 100% on R/A; ll3 23:00 BP 150 / 50; Pulse 64; Resp 15; Pulse Ox 100% on R/A; ll3 23:57 BP 139 / 54; Pulse 60; Resp 14; Pulse Ox 100% on R/A; ll3 08/20 01:15 BP 156 / 62; Pulse 58; Resp 16; Pulse Ox 100% on R/A; ll3 02:15 BP 158 / 63; Pulse 58; Resp 16; Pulse Ox 100% on R/A; ll3 08/19 19:45 Body Mass Index 25.10 (77.11 kg, 175.26 cm) ld1 MDM: 08/19 21:34 Patient medically screened. kb 23:48 Data reviewed: vital signs, nurses notes. Data interpreted: Pulse oximetry: on room air kb is 99 %. Interpretation: normal. 08/20 00:18 Counseling: I had a detailed discussion with the patient and/or guardian regarding: the kb historical points, exam findings, and any diagnostic results supporting the discharge/admit diagnosis, lab results, radiology results, the need for further work-up and treatment in the hospital. Physician consultation: Osmin Orantes MD was contacted at 00:18, regarding consult, patient's condition, and will see patient in inpatient room. 00:18 Physician consultation: Funmi HOOVER was contacted at 00:18, regarding admission, kb patient's condition. 01:07 ED course: Dr Rittger and I both tried to reduce hernia without success. . 08/19 19:48 Order name: CBC with Diff; Complete Time: 21:51 [facility] 08/19 19:48 Order name: CMP; Complete Time: 22:31 [facility] 08/19 19:48 Order name: Lipase; Complete Time: 22:31 [facility] 08/19 19:49 Order name: Urine Culture [facility] 08/19 23:19 Order name: CREATININE WHOLE BLOOD; Complete Time: 23:30 [facility] 08/19 23:53 Order name: Urine Dipstick-Ancillary; Complete Time: 23:55 [facility] 08/19 22:04 Order name: Abdomen [facility] 08/20 00:18 Order name: COVID-19 SARS RT PCR (Document "Date of Onset" if Symptomatic) 08/19 19:48 Order name: IV Saline Lock; Complete Time: 21:54 [facility] 08/19 19:48 Order name: Labs collected and sent; Complete Time: 21:54 [facility] 08/19 19:48 Order name: Urine Dipstick-Ancillary (obtain specimen); Complete Time: 23:53 [facility] Administered Medications: 08/19 21:30 Drug: Zofran (Ondansetron) 4 mg Route: IVP; Site: right antecubital; ld1 23:53 Follow up: Response: No adverse reaction; Marked relief of symptoms ll3 21:30 Drug: morphine 4 mg Route: IVP; Infused Over: 4 mins; Site: right antecubital; ld1 23:53 Follow up: Response: No adverse reaction; Marked relief of symptoms ll3 23:50 Drug: morphine 4 mg Route: IVP; Infused Over: 4 mins; Site: right antecubital; ll3 08/20 00:43 Follow up: Response: No adverse reaction ll3 00:00 Drug: NS 0.9% 1000 ml Route: IV; Rate: 1 bolus; Site: right antecubital; ll3 01:50 Follow up: Response: No adverse reaction; IV Status: Completed infusion; IV Intake: ll3 1000ml 00:35 Drug: Zosyn (piperacillin-tazobactam) 3.375 grams Route: IVPB; Infused Over: 60 mins; ll3 Site: right antecubital; 01:49 Follow up: Response: No adverse reaction; IV Status: Completed infusion; IV Intake: ll3 100ml Disposition Summary: 08/20/21 00:19 Hospitalization Ordered Hospitalization Status: Observation kb Provider: Domingo Howe Location: Telemetry/MedSurg (observation) kb Condition: Stable kb Problem: new kb Symptoms: are unchanged kb Bed/Room Type: Standard kb Room Assignment: 201(08/20/21 02:06) eb1 Diagnosis - Incarcerated Inguinal hernia - right side kb Forms: - Medication Reconciliation Form kb - SBAR form kb Addendum: 08/21/2021 07:20 Co-signature as Attending Physician, John Dee MD I agree with the assessment and k dr plan of care. Signatures: Dispatcher [employer] EDIA Odalis Pro, MEDICAL EDUCATION COORDINATOR-C MEDICAL EDUCATION COORDINATOR-Ckb John Dee MD MD kdr Mickail, Joel, PA PA jmm Basinger, Emily RN RN eb1 Leidy Platt RN RN ld1 Johana Amanda RN RN ll3 Corrections: (The following items were deleted from the chart) 08/19 22:04 19:49 Abdomen Pelvis W Con+CT.RAD.BRZ ordered. EDIA EDIA 08/20 02:06 00:19 kb eb1
[2021-08-20] MEDS ORDERED: PIPERACIL/TAZO 3.375 GM VIAL IV ONE (00:35)
[2021-08-20] MEDS ORDERED: NA CHLORIDE 0.9% 100 ML ONE (00:35)
--- NOTE | 2021-08-20 01:18 | P.HP ---
Certification for Inpatient Patient admitted to: Inpatient With expected LOS: <2 Midnights Patient will require the following post-hospital care: None Practitioner: I am a practitioner with admitting privileges, knowledge of patient current condition, hospital course, and medical plan of care. Services: Services provided to patient in accordance with Admission requirements found in Title 42 Section 412.3 of the Code of Federal Regulations Patient History Date of Service: 08/20/21 Reason for admission: Incarcerated Inguinal Hernia History of Present Illness: Patient is a 76-year-old male with NIDDM, prostate cancer, and hypertension who presented to the ED with complaints of generalized lower abdominal pain that began around 1700. He reports it is associated with nausea but has not vomited and it radiates to his back. Vital signs stable. Labs significant for WBC 12.9, hemoglobin 11.1, creatinine 1.4, glucose 232, lipase 891, urine positive for ketones and protein. CT showed right inguinal hernia containing a short segment of distal small bowel and the right anterior bladder with concern for early incarceration. Several attempts were made to reduce the hernia in the ED but were unsuccessful. Dr. Orantes was consulted and agrees to consult on patient. He was started on Zosyn in the ED. Patient is admitted for further evaluation and treatment. Allergies No Known Allergies Allergy (Unverified 06/08/17 20:46) Home medications list reviewed: Yes Home Medications: Aspirin [Aspirin EC 81 MG] 1 tab PO DAILY 06/09/17 Glyburide/Metformin HCl [Glucovance 5-500 mg Tablet] 1 each PO BID 06/09/17 Losartan Potassium 1 tab PO DAILY 06/09/17 Metformin HCl 1 tab PO BID 06/09/17 Tamsulosin HCl 0.4 mg PO DAILY 06/09/17 hydroCHLOROthiazide [Hydrochlorothiazide] 25 mg PO DAILY 06/09/17 Cefuroxime Axetil [Cefuroxime] 500 mg PO BID #10 tab 06/10/17 - Past Medical/Surgical History Diabetic: Yes -: prostate cancer -: DM II -: HTN Past Surgical History: Patient denies surgical history - Family History Mother -: Hypertension, Diabetes - Social History Smoking Status: Former smoker Alcohol use: No CD- Drugs: No Caffeine use: Yes Place of Residence: Home Review of Systems Gastrointestinal: Nausea, Abdominal Pain Physical Examination - Physical Exam General: Alert, In no apparent distress HEENT: Atraumatic, PERRLA, EOMI, Sclerae nonicteric Neck: Supple, 2+ carotid pulse no bruit, No LAD, Without JVD or thyroid abnormality Respiratory: Clear to auscultation bilaterally, Normal air movement Cardiovascular: Regular rate/rhythm, Normal S1 S2 Gastrointestinal: Non-distended, Other (R inguinal hernia, non reducable ), Tenderness Musculoskeletal: No tenderness Integumentary: No rashes Neurological: Normal speech, Normal strength at 5/5 x4 extr, Normal tone, Normal affect - Studies Laboratory Data (last 24 hrs) 08/19/21 21:30: Sodium 141, Potassium 4.2, BUN 26 H, Creatinine 1.40 H, Glucose 232 H, Total Bilirubin 0.2, AST 11 L, ALT 23, Alkaline Phosphatase 35 L, Lipase 891 H 08/19/21 21:30: WBC 12.9 H, Hgb 11.1 L, Hct 35.5 L, Plt Count 232 Assessment and Plan - Problems (Diagnosis) (1) Inguinal hernia Current Visit: Yes Status: Acute Qualifiers: Obstruction and gangrene presence: without obstruction or gangrene Laterality: unilateral Recurrence: non-recurrent Qualified Code(s): K40.90 - Unilateral inguinal hernia, without obstruction or gangrene, not specified as recurrent (2) Elevated lipase Current Visit: Yes Status: Acute (3) Diabetes mellitus Current Visit: Yes Status: Chronic Qualifiers: Diabetes mellitus type: type 2 Diabetes mellitus care home insulin use: without care home use Diabetes mellitus complication status: with hyperglycemia Qualified Code(s): E11.65 - Type 2 diabetes mellitus with hyperglycemia (4) HTN (hypertension) Current Visit: Yes Status: Chronic Qualifiers: Hypertension type: primary hypertension Qualified Code(s): I10 - Essential (primary) hypertension (5) Prostate cancer Current Visit: Yes Status: Chronic (6) Acute kidney injury superimposed on CKD Current Visit: Yes Status: Acute - Plan -NPO. Zosyn and IVF overnight. Pain meds as needed. -General surgery to see patient -Cause of elevation in lipase in unclear. Could be secondary to prostate cancer. Patient is not complaining of epigastric pain. CT did not show signs of pancreatitis. Will recheck lipase in the morning as well as amylase and triglycerides. -ACHS accu checks with mild sliding scale insulin -Monitor and replete electrolytes per protocol -Reconcile and continue home medications -SCDs for DVT ppx -Full code Discharge Plan: Home Plan to discharge in: 48 Hours - Advance Directives Does patient have a Living Will: Yes Does patient have a Durable POA for Healthcare: Yes - Code Status/Comfort Care Code Status Assessed: Yes (Full) Critical Care: No Time Spent Managing Pts Care (In Minutes): 50
[2021-08-20] MEDS ORDERED: ACETAMINOPHEN 500 MG TAB PO PRN (03:01)
[2021-08-20] MEDS ORDERED: ONDANSETRON 4 MG/2 ML VIAL IV PRN (03:01)
[2021-08-20] MEDS: Ringers Lactate 1,000 ML IV SCH ×3 (03:01→21:15)
[2021-08-20] MEDS ORDERED: Ringers Lactate 1,000 ML IV ONE (03:11)
[2021-08-20 03:27] VITALS: BMI 25.1
[2021-08-20] MEDS: HYDROMORPHONE HCL 1 MG/ML INJ IV PRN ×2 (03:41→13:39)
[2021-08-20 05:41] LABS: Absolute Lymphocytes (CBC) 1.2 K/uL (0.7-4.9); Hematocrit 31.7 % (39.6-49.0); Lymphocytes % 11.2 % (15.3-44.8); MCV 80.2 fL (80-100); MPV 8.5 fL (7.6-11.3); RBC Red Blood Cell Count 3.95 M/uL (4.33-5.43)
[2021-08-20 06:01] LABS: Magnesium 1.7 mg/dL (1.8-2.4); Potassium 4.9 mmol/L (3.5-5.1)
[2021-08-20] MEDS ORDERED: MAGNESIUM SULFATE 1 gm IVPB 1 GM/100 ML BAG IV ONE (06:14)
[2021-08-20] MEDS: INSULIN -REGULAR HUMAN 50 UNIT/0.5 ML ML SQ SCH ×4 (07:30→21:00)
[2021-08-20] MEDS ORDERED: PNEUMOCOCCAL VACCINE 0.5 ML IMVAC ONE (08:00)
[2021-08-20] MEDS: PIPER TAZO 3.375 GM in NA CHLORIDE 0.9% 100 ML IV SCH ×2 (08:42→16:59)
[2021-08-20] MEDS ORDERED: POTASSIUM CL SA 10 MEQ TAB PO ONE (09:00)
--- NOTE | 2021-08-20 12:26 | P.PN ---
Date of Service: 08/20/21 Patient seen and examined. He still complaining of pain in the right groin and pubic area. Right groin is still swollen from hernia. Patient kept n.p.o. Diagnosis: Incarcerated hernia Acute renal failure. Plan: Elevated lipase likely secondary to the incarcerated hernia. Continue supportive measures. Pain management as needed Empiric antibiotics. General surgery to see patient.
[2021-08-20] MEDS ORDERED: FENTANYL CITR 100 MCG/2 ML ONE (14:13)
[2021-08-20] MEDS ORDERED: propofoL 200 MG/20 ML VIAL IV ONE (14:13)
[2021-08-20] MEDS ORDERED: ROCURONIUM 50 MG/5 ML VIAL IV ONE (14:13)
[2021-08-20] MEDS ORDERED: LIDOCAINE 2% MPF 5 ML VIAL ONE (14:13)
[2021-08-20] MEDS ORDERED: dexAMETHasone 10 MG/ML VIAL ONE (14:48)
[2021-08-20] MEDS ORDERED: KETOROLAC 30 MG/ML INJ ONE (14:49)
[2021-08-20] MEDS ORDERED: ONDANSETRON 4 MG/2 ML VIAL ONE (14:49)
[2021-08-20] MEDS ORDERED: GLYCOPYRROLATE 0.2 MG/ML SYR ONE ×2 (15:36→16:18)
[2021-08-20] MEDS ORDERED: NEOSTIGMINE 1 MG/ML -10 ML VIAL ONE (15:36)
--- NOTE | 2021-08-20 15:40 | P.BOP ---
Preoperative diagnosis: large incarcerated right inguinal hernia, enteritis, cystitis Postoperative diagnosis: same Primary procedure: Open repair of large incarcerated right inguinal hernia with mesh Kiln Furniture Caster: Ruby Joaquin (Radha) Estimated blood loss: <20cc Specimen: none Findings: RIH with incarcerated urinary bladder and small bowel Anesthesia: General Complications: None Drain(s): Other (large mesh plug and sheet) Transferred to: Recovery Room Condition: Good
[2021-08-20] MEDS ORDERED: NALOXONE 0.4 MG/ML VIAL ONE (15:58)
[2021-08-20] MEDS ORDERED: HYDROMORPHONE HCL 1 MG/ML INJ ONE (16:18)
--- NOTE | 2021-08-20 17:03 | RAD REPORT ---
EXAM DESCRIPTION: CT - Abdomen Pelvis Wo Contrast - 08/20/2021 5:59 am CLINICAL HISTORY: Lower abdominal pain. COMPARISON: CT abdomen and pelvis with contrast 05/26/2021. TECHNIQUE: Axial unenhanced CT imaging of the abdomen and pelvis performed. Reformatted coronal and sagittal images reviewed. A dose reduction technique was utilized with automated exposure control according to patient size. FINDINGS: Intraparenchymal cysts are present within the right lower lobe. Heart is normal in size. Normal liver, gallbladder, spleen, pancreas, adrenal glands. Anterior right renal simple appearing 2. 9 cm cyst. Nonobstructing 3 mm right renal pelvic stone. No hydronephrosis in either kidney. Moderate abdominal aorta atherosclerosis. No aneurysm. Normal inferior vena cava caliber. Unremarkable stomach. Small bowel loops are normal in caliber. Normal appendix in the right lower anjelica drant. Mild colonic diverticulosis without diverticulitis. There is a large right inguinal hernia con taining a short segment of distal small bowel without proximal obstruction. There is thickening of th e herniated segment with intrahernia edema. There is also extension of the right anterior bladder int o the defect. Mild thickening of the bladder wall involving the hernia. No ascites. Small fat-contain ing umbilical hernia without incarceration or bowel involvement. There is no bladder filling defect. The prostate is 5.5 x 5.4 x 6.2 cm. No pelvic free fluid or adeno rita. Normal lumbar alignment. Mild degenerative changes in the lower thoracic spine. Intact bony pelvis. IMPRESSION: 1. Right inguinal hernia containing a short segment of distal small bowel and the right anterior bladder. There is thickening of the involved small bowel segment as well as the herniated po rtion of the bladder with intrahernia edema. This is concerning for early incarceration. There is no proximal small bowel obstruction 2. Nonobstructing right nephrolithiasis. Anterior right renal cyst. No follow-up warranted. 3. Mild colonic diverticulosis without diverticulitis. 4. Fat-containing umbilical hernia without incarceration. 5. Prostatomegaly. Electronically signed by: Therese Lane DO 08/19/2021 11:03 PM CDT Due to temporary technical issues with the PACS/Fluency reporting system, reports are being signed by the in house radiologists without. review as a courtesy to insure prompt reporting. The interpreting radiologist is fully responsible for the content of the report.
[2021-08-20 17:34] LABS: Urine Appearance TURBID (Clear); Urine Bilirubin Negative (Negative); Urine Blood 2+ (Negative); Urine Color Yellow (Yellow); Urine Glucose Negative (Negative); Urine Protein 1+ (Negative); Urine Specific Gravity 1.025 (1.005-1.030); Urine Urobilinogen 0.2 mg/dL (0.2-1.0); Urine pH 5.5 (5.0-7.0)
[2021-08-20 17:59] LABS: Urine Bacteria <20 /HPF (NONE SEEN); Urine Mucus 2+ /HPF (NONE SEEN)
--- NOTE | 2021-08-20 19:17 | CON ---
Date of Consultation: 08/20/2021 Diagnosis: Incarcerated right inguinal hernia. History Of Present Illness: This is the case of a 76-year-old patient with history of prostate cance r, non-insulin dependent diabetes, hypertension, who comes us today with a 1-day history of abdominal pain, also inguinal pain. The patient says that he has a hernia in that area for more than 5 years, but really has not bothered him that much until about 1 day ago. He came to the ER, found to have i ncarcerated loop of small bowel and bladder, although he states it has been there for a long time. I t is question because right now he has more pain in that region and a surgical consult was obtained f or emergent repair. He denies any nausea. He cannot give much information about his prostate cancer . He denies any dysuria, hematuria, hematochezia, or melena. Allergies: NONE. Medications: Reviewed including aspirin, metformin. Past Medical History: Prostate cancer, diabetes, hypertension. Past Surgical History: He denies any surgical history. Family History: Includes hypertension and diabetes. Social History: He does not smoke. He does not drink alcohol. Review of Systems: See H and P. Ten points otherwise unremarkable. Physical Examination: General: The patient is awake, alert. HEENT: Pupils equal, reactive. Anicteric. Neck: Supple. Chest: Clear. Abdomen: Soft and depressible. There is right lower quadrant mild tenderness. There is a right ten taty inguinal hernia, incarcerated. They trying to reduce that in ER, but they could not reduce that. There is a large hernia present in that region. No crepitus. No cellulitis. In the abdomen, ther e is no guarding or rebound. Rectal: Deferred. Extremities: Good capillary refill. Laboratory Data: Blood work shows WBC count of 12.9 with a hemoglobin of 11.1. Chloride is 105, BUN is 26. UA, nitrate negative. CAT scan of the abdomen and pelvis, official report still pending, bu t preliminary report shows incarcerated right inguinal hernia with a small bowel and bladder content. There is some swelling within the bowel itself concerning for an early incarceration. Assessment: It is a 76-year-old patient with incarcerated right inguinal hernia with swelling of the intestines, so the area is trying to be reduced by the ER physician, they could not and they called me to address the issue and we explained to the patient the benefits, alternatives, and risks of open repair of right inguinal hernia, possible laparotomy, possible bowel resection. Benefits, alternati ves, and risks include, but not limited to infection, bleeding, damage to adjacent structures, anesth esia complication, [place], and even . He also understands this may not relieve any symptoms. He mi ght need more than one surgical intervention. He is going to notify his and when he talk to her , then he will sign the consent and we will book the case emergently in OR. He understands also we m ay or may not use mesh in that region. Pros and cons of mesh use were explained to the patient. ANATOLIY/LIBERTY Voice ID: [id number] Report ID: [id number]
[2021-08-21] MEDS: PIPER TAZO 3.375 GM in NA CHLORIDE 0.9% 100 ML IV SCH ×2 (00:56→08:14)
--- NOTE | 2021-08-21 02:39 | OP ---
Date of Procedure: 08/20/2021 Surgeon: Osmin rOantes MD Shipping Hand: JUMANA Chapa. Preoperative Diagnoses: Large incarcerated right inguinal hernia, enteritis, cystitis. Postoperative Diagnoses: Large incarcerated right inguinal hernia, enteritis, cystitis. Procedures: Open repair of a large incarcerated right inguinal hernia with mesh. Ebl: Less than 20 cc. Specimens: None. Findings: The patient has a right inguinal hernia with incarcerated urinary bladder and also the sma ll bowel, both of them seemed to be viable at least during surgery. Anesthesia: General plus local. Implants: Large mesh and plug and sheath. Indication: This is the case of a male who comes to us with an incarcerated right inguinal hernia. He states he has it there for a few years, but never given this discomfort and pain, so the patient w as found to have enteritis and cystitis in his bladder and the bowel was involved in that area with s ome swelling. So, suspicion for incarceration, possible strangulation was diagnosed and the patient was offered any urgent open repair of right inguinal hernia with mesh, possible bowel resection, poss ible laparotomy. Benefits, alternatives, alternatives, and risks were fully explained, which include d, but not limited to infection, bleeding, damage to adjacent structures, anesthesia complication, re currence, chronic pain, chronic numbness, [place], and even . He also understands that if this may n ot relieve any symptoms, he may need more than one surgical intervention. He understood and signed t he consent. The patient was fully explained also the use of mesh in this place and pros and cons of it. The patient understands the importance of following up with his urologist, most likely we will l eave a Mcgee after the case if we see it is necessary due to the involvement of the bladder on this h ernia and the incarceration. Procedure In Detail: The patient was brought to the operating room, placed in the supine position. Anesthesia was done without complication. Abdominal area was prepped and draped in sterile fashion i ncluding the inguinal region. The patient has a large pronounced hernia in that region. We tried to keep the hernia like that, tried not to reduce want to make sure that is still viable. S o, we made an incision and carefully opened through the Paul's fascia, keeping in mind once again t o leave the content of the hernia until we have physical inspection or better visualization. Externa l oblique aponeurosis was opened in the direction of the fascia until we had the superficial inguinal ring opened. At that moment, then we identified ilioinguinal nerve, iliohypogastric nerve, retracte d behind external oblique aponeurosis. I identified traumatic cord and put a Bapchule around it once again preserved that. Then, we opened the hernia sac. The hernia looked to be a direct hernia at pr esent. Once we identified that area, we noticed the patient had viable intestines at this moment and the bladder was coming through. We preserved that we did not cut into it. It looked viable. Some omentum in the area also looked viable. So, we proceeded to carefully reduce the content back into t he abdominal cavity after fully inspected with no bleeding. At that moment, I proceeded then to plac e the mesh plug over the area of the hernia defect. We imbricated the hernia sac, and carefully afte r we have a hernia sac closed, we imbricated that area, put a mesh in that region, secured that with VersaTack. Then, we put a mesh sheath over the inguinal canal and carefully securing that to the pub ic tubercle, shelving edge of inguinal ligament and transversalis fascia and the loops around the spe rmatic cord without strangulation. At that moment, I proceeded to bring the ilioinguinal nerve. Riya ohypogastric nerve back into the inguinal canal, reconstructed the superficial inguinal ring, and segun sed the external oblique aponeurosis without including nerve. The area was irrigated. Subcutaneous tissue was closed with 3-0 chromic and skin with nellie. The patient tolerated the procedure well. At the end of the case, testicles were in the scrotum. The patient was sent to recovery in stable c ondition. The Mcgee will remain in place. We have this patient with cystitis and the bladder in the bowel, so we want to make sure that he will recover from that one before we will remove the Mcgee. For diet control since we have intestines also involved in this case, we are going to just keep him o n full-liquid diet until we notice that he is tolerating diet. At one point, we noticed that ___ that his intestines or bladder becomes an issue, then in the case of intestine, we might have to address the issue and remove a segment of the bowel, although clinical here during surgery, it looks viable. ANATOLIY/LIBERTY Voice ID: [id number] Report ID: [id number]
[2021-08-21] MEDS: Ringers Lactate 1,000 ML IV SCH ×2 (04:41→17:51)
[2021-08-21 05:42] LABS: Absolute Lymphocytes (CBC) 1.2 K/uL (0.7-4.9); Hematocrit 28.5 % (39.6-49.0); Lymphocytes % 10.8 % (15.3-44.8); MCV 79.8 fL (80-100); MPV 8.3 fL (7.6-11.3); RBC Red Blood Cell Count 3.56 M/uL (4.33-5.43)
[2021-08-21 05:56] LABS: Magnesium 2.1 mg/dL (1.8-2.4); Potassium 4.4 mmol/L (3.5-5.1)
[2021-08-21] MEDS: INSULIN -REGULAR HUMAN 50 UNIT/0.5 ML ML SQ SCH ×4 (07:05→21:00)
--- NOTE | 2021-08-21 10:53 | P.PN ---
Subjective Date of Service: 08/21/21 Chief Complaint: Incarcerated Inguinal Hernia Status post right inguinal hernia reduction and repair. No BM yet. Patient denies any abdominal pain. He is tolerating full liquid diet. Physical Examination - Vital Signs Temperature: 99.8 F Blood Pressure: 114/54 Pulse: 53 Respirations: 16 Pulse Ox (%): 97 - Physical Exam General: Alert, In no apparent distress, Oriented x3 HEENT: Mucous membr. moist/pink Neck: Supple, JVD not distended Respiratory: Clear to auscultation bilaterally, Normal air movement Cardiovascular: No edema, Regular rate/rhythm, Normal S1 S2, No murmurs Gastrointestinal: Normal bowel sounds, Soft and benign, Non-distended, No tenderness, Other (Right inguinal surgical wound-clean and dry) Musculoskeletal: No swelling, No tenderness Integumentary: No rashes, No erythema, No cyanosis Neurological: Normal strength at 5/5 x4 extr - Studies Microbiology Data (last 24 hrs): 08/19/21 23:55 Clean Catch Urine [place] Count - Final <10,000 CFU/ML. 08/19/21 23:55 Clean Catch Urine - Final MIXED VIKI. Assessment And Plan - Current Problems (Diagnosis) (1) Incarcerated inguinal hernia Current Visit: Yes Status: Acute (2) Anemia Current Visit: Yes Status: Acute (3) Chronic kidney disease, stage III (moderate) Current Visit: Yes Status: Acute (4) Diabetes mellitus Current Visit: Yes Status: Chronic Qualifiers: Diabetes mellitus type: type 2 Diabetes mellitus extermination inspector insulin use: without extermination inspector use Diabetes mellitus complication status: with hyperglycemia Qualified Code(s): E11.65 - Type 2 diabetes mellitus with hyperglycemia (5) HTN (hypertension) Current Visit: Yes Status: Chronic Qualifiers: Hypertension type: primary hypertension Qualified Code(s): I10 - Essential (primary) hypertension - Plan Continue supportive measures. Noted a portion of the bladder wall was incarcerated in the hernia. Mcgee catheter maintain. Patient is tolerating full liquid diet. Continue supportive measures-pain management as needed. General surgery-Dr. Orantes to follow Insulin sliding scale for glucose management. Drop in hemoglobin is likely dilutional. Minimal blood loss recorded during surgery. Monitor and transfuse as needed for hemoglobin less than 7. Urine culture shows mixed viki. UTI is less likely. No fever, leukocytosis resolved. discontinue antibiotics.
[2021-08-21] MEDS: HYDROMORPHONE HCL 1 MG/ML INJ IV PRN ×2 (12:55→17:51)
[2021-08-21] MEDS: HYDROCODONE/APAP 5/325 MG TAB PO PRN (22:00)
[2021-08-22] MEDS: Ringers Lactate 1,000 ML IV SCH ×4 (02:11→18:13)
[2021-08-22 05:20] LABS: Absolute Lymphocytes (CBC) 1.8 K/uL (0.7-4.9); Hematocrit 28.4 % (39.6-49.0); MCV 79.7 fL (80-100); MPV 8.5 fL (7.6-11.3); RBC Red Blood Cell Count 3.57 M/uL (4.33-5.43)
[2021-08-22 05:36] LABS: Magnesium 1.9 mg/dL (1.8-2.4); Potassium 3.9 mmol/L (3.5-5.1)
[2021-08-22] MEDS: INSULIN -REGULAR HUMAN 50 UNIT/0.5 ML ML SQ SCH ×4 (07:30→21:00)
[2021-08-22] MEDS: HYDROCODONE/APAP 5/325 MG TAB PO PRN ×3 (08:29→21:45)
[2021-08-22] MEDS: HYDROMORPHONE HCL 1 MG/ML INJ IV PRN ×2 (09:37→13:42)
--- NOTE | 2021-08-22 09:56 | P.PN ---
Subjective Date of Service: 08/22/21 Chief Complaint: Incarcerated Inguinal Hernia Subjective: Improving (Improving doing well still complains of slight nausea abdominal discomfort) Review of Systems General: Weakness Gastrointestinal: Nausea Physical Examination - Vital Signs Temperature: 97.8 F Blood Pressure: 142/64 Pulse: 43 Respirations: 17 Pulse Ox (%): 95 - Physical Exam General: Alert, Oriented x3 Neck: Supple Respiratory: Clear to auscultation bilaterally Gastrointestinal: Tenderness - Studies Microbiology Data (last 24 hrs): 08/19/21 23:55 Clean Catch Urine [place] Count - Final <10,000 CFU/ML. 08/19/21 23:55 Clean Catch Urine - Final MIXED EMMETT. Assessment And Plan - Current Problems (Diagnosis) (1) Incarcerated inguinal hernia Current Visit: Yes Status: Acute Plan: Patient is 76 years of age admitted with incarcerated right inguinal hernia he had surgery done and he is doing better also has a Mcgee catheter in place labs reviewed he is only on liquids right now still have some abdominal discomfort awaiting review by Dr. Orantes possible discharge tomorrow vital signs all reviewed stable labs reviewed mild microcytic anemia
[2021-08-23] MEDS: Ringers Lactate 1,000 ML IV SCH ×4 (04:34→21:46)
[2021-08-23] MEDS: INSULIN -REGULAR HUMAN 50 UNIT/0.5 ML ML SQ SCH ×4 (07:30→21:00)
[2021-08-23] MEDS: HYDROCODONE/APAP 5/325 MG TAB PO PRN (11:29)
--- NOTE | 2021-08-23 15:44 | P.PN ---
Subjective Date of Service: 08/23/21 Chief Complaint: nausea and abdominal pain No change c/o nausea only eating 50% ambulating Review of Systems General: Weakness Gastrointestinal: Nausea, Abdominal Pain Physical Examination - Vital Signs Temperature: 97.3 F Blood Pressure: 185/74 Pulse: 65 Respirations: 14 Pulse Ox (%): 95 - Physical Exam General: Alert, In no apparent distress, Oriented x3 Respiratory: Clear to auscultation bilaterally Cardiovascular: No edema, Regular rate/rhythm Gastrointestinal: Hypoactive, Non-distended, Tenderness (generalized mild) Assessment And Plan - Current Problems (Diagnosis) (1) Incarcerated inguinal hernia Current Visit: Yes Status: Acute Plan: c/o Abdominal pain and nausea/ Ambulating Not full regular diet yet . CW advance diet. Anselmo Orantes poss D/C am (2) HTN (hypertension) Current Visit: Yes Status: Chronic Plan: REsume home meds BP elevated Qualifiers: Hypertension type: primary hypertension Qualified Code(s): I10 - Essential (primary) hypertension
[2021-08-23] MEDS: TAMSULOSIN 0.4 MG SR CAP PO SCH (16:37)
[2021-08-23] MEDS: LOSARTAN POTASSIUM 50 MG TABLET PO SCH (16:38)
[2021-08-23] MEDS: hydroCHLOROthiazide 25 MG TAB PO SCH (16:38)
[2021-08-23] MEDS: METFORMIN HCL 500 MG TAB PO SCH ×2 (16:38→21:00)
[2021-08-23 23:43] VITALS: O2SAT 98
[2021-08-24] MEDS: HYDROCODONE/APAP 5/325 MG TAB PO PRN ×4 (02:27→22:24)
[2021-08-24] MEDS: Ringers Lactate 1,000 ML IV SCH ×2 (03:01→05:58)
[2021-08-24 03:43] LABS: Hematocrit 30.5 % (39.6-49.0); MCV 78.9 fL (80-100); MPV 8.6 fL (7.6-11.3); RBC Red Blood Cell Count 3.87 M/uL (4.33-5.43)
[2021-08-24 04:02] LABS: Potassium 4.1 mmol/L (3.5-5.1)
[2021-08-24] MEDS: INSULIN -REGULAR HUMAN 50 UNIT/0.5 ML ML SQ SCH ×4 (07:30→20:36)
--- NOTE | 2021-08-24 07:31 | RAD REPORT ---
EXAM DESCRIPTION: RAD - Abdomen Single View - 08/24/2021 6:05 am CLINICAL HISTORY: abd distention COMPARISON: Abdomen Pelvis Wo Contrast dated 08/19/2021 FINDINGS: Surgical clips are present right lower quadrant at the site of right inguinal hernia repai r. Skin nellie are present over the right inguinal region. No abnormal bowel gas pattern extends int o the inguinal canal. Multiple air-filled distended and dilated small bowel loops are present. Air and stool distends the r ight-side of the colon. There is air filling but not dilating the transverse colon and descending col on. No rectal distention. No free air or pneumatosis. No suspicious calcifications. IMPRESSION: Distended and dilated small bowel loops with air distention of the right-side colon. No bowel gas overlying the right inguinal region. Postsurgical clips and skin nellie overlie the right groin region. Findings are most likely a pronounced postoperative ileus.
--- NOTE | 2021-08-24 09:17 | P.DS ---
Admission Date: 08/20/21 Discharge Date: 08/24/21 Disposition: ROUTINE DISCHARGE Discharge Condition: FAIR Reason for Admission: nausea and abdominal pain - Problems (1) Incarcerated inguinal hernia Current Visit: Yes Status: Acute (2) HTN (hypertension) Current Visit: Yes Status: Chronic Qualifiers: Hypertension type: primary hypertension Qualified Code(s): I10 - Essential (primary) hypertension Brief History of Present Illness: Patient is 76 years of age presented with incarcerated right inguinal hernia Hospital Course: Patient was seen by Dr. 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 Orantes to leave the Mcgee catheter in place KUB showed some distended bowel Vital Signs/Physical Exam: Temp Pulse Resp BP Pulse Ox 97.8 F 60 16 158/71 H 96 08/24/21 08:00 08/24/21 08:00 08/24/21 08:00 08/24/21 08:00 08/24/21 08:00 Laboratory Data at Discharge: WBC 10.6 K/uL (4.3-10.9) 08/24/21 03:09 Hgb 10.0 g/dL (13.6-17.9) L 08/24/21 03:09 Hct 30.5 % (39.6-49.0) L 08/24/21 03:09 Plt Count 222 K/uL (152-406) D 08/24/21 03:09 Sodium 140 mmol/L (136-145) 08/24/21 03:09 Potassium 4.1 mmol/L (3.5-5.1) 08/24/21 03:09 BUN 15 mg/dL (7-18) 08/24/21 03:09 Creatinine 0.99 mg/dL (0.55-1.3) 08/24/21 03:09 Glucose 147 mg/dL (74-106) H 08/24/21 03:09 Magnesium 2.0 mg/dL (1.8-2.4) 08/24/21 03:09 Total Bilirubin 0.2 mg/dL (0.2-1.0) 08/19/21 21:30 AST 11 U/L (15-37) L 08/19/21 21:30 ALT 23 U/L (12-78) 08/19/21 21:30 Alkaline Phosphatase 35 U/L (45-117) L 08/19/21 21:30 Triglycerides 32 mg/dL (<150) 08/20/21 05:18 Cholesterol 140 mg/dL (<200) 08/20/21 05:18 HDL Cholesterol 83 mg/dL (40-60) H 08/20/21 05:18 Cholesterol/HDL Ratio 1.69 08/20/21 05:18 Amylase 116 U/L (25-115) H 08/20/21 05:18 Lipase 61 U/L (73-393) L 08/21/21 05:29 Home Medications: Aspirin [Aspirin EC 81 MG] 1 tab PO DAILY 06/09/17 Losartan Potassium 2 tab PO DAILY 06/09/17 Metformin HCl 1 tab PO BID 06/09/17 Tamsulosin HCl 0.4 mg PO DAILY 06/09/17 hydroCHLOROthiazide [Hydrochlorothiazide] 25 mg PO DAILY 06/09/17 Physician Discharge Instructions: Patient to leave the Mcgee catheter in until seen by Dr. Orantes Diet: Regular Activity: Ad susan Followup: Osmin Orantes MD [ACTIVE - CAN ADMIT] - (On Tuesday)
[2021-08-24] MEDS: TAMSULOSIN 0.4 MG SR CAP PO SCH (09:23)
[2021-08-24] MEDS: METFORMIN HCL 500 MG TAB PO SCH ×2 (09:23→20:36)
[2021-08-24] MEDS: LOSARTAN POTASSIUM 50 MG TABLET PO SCH (09:23)
[2021-08-24] MEDS: hydroCHLOROthiazide 25 MG TAB PO SCH (09:24)
[2021-08-25] MEDS: INSULIN -REGULAR HUMAN 50 UNIT/0.5 ML ML SQ SCH ×4 (07:30→20:25)
[2021-08-25] MEDS: HYDROCODONE/APAP 5/325 MG TAB PO PRN (08:10)
[2021-08-25] MEDS: LOSARTAN POTASSIUM 50 MG TABLET PO SCH (08:11)
[2021-08-25] MEDS: hydroCHLOROthiazide 25 MG TAB PO SCH (08:11)
[2021-08-25] MEDS: METFORMIN HCL 500 MG TAB PO SCH ×2 (08:11→20:22)
[2021-08-25] MEDS: TAMSULOSIN 0.4 MG SR CAP PO SCH (08:11)
--- NOTE | 2021-08-25 11:02 | P.PN ---
Subjective Date of Service: 08/23/21 Chief Complaint: prostate cancer, abd pain, Inguinal hernia with intestine and urinary bladd Subjective: Doing well (but still bloated) Review of Systems Gastrointestinal: Distention, As per HPI Genitourinary: As per HPI Physical Examination - Vital Signs Temperature: 97.2 F Blood Pressure: 157/74 Pulse: 75 Respirations: 16 Pulse Ox (%): 95 - Physical Exam General: Alert, In no apparent distress, Oriented x3, Cooperative HEENT: PERRLA, EOMI Neck: Supple Cardiovascular: Normal pulses Gastrointestinal: No rebound, No guarding, Other (incision intact.), Hyperactive, Distended Musculoskeletal: No erythema, No tenderness, No warmth Integumentary: No rashes, No breakdown Neurological: Normal speech Urinary: Mcgee catheter Assessment And Plan - Plan 1. I noticed he is eating outside food (chicken and nugget) while still in full liquid diet. Clinically with an ileus similar to he admission complains. His hernia, was there for 5 years already and although needed to be fix, theres always the question if theres some other etiololy to his chronic belly pain. Pt is supposed to start his Prostate cancer treatment by now but it was put on hold for this events. 2. Ambulation 3. IS 4. abd xray 5. do not advance diet yet
--- NOTE | 2021-08-25 14:40 | P.PN ---
Subjective Date of Service: 08/25/21 Chief Complaint: Nausea not eating and drinking Ileus c/o nausea not eating much ileus Review of Systems General: Weakness Gastrointestinal: Nausea, Abdominal Pain Physical Examination - Vital Signs Temperature: 97.1 F Blood Pressure: 154/80 Pulse: 71 Respirations: 16 Pulse Ox (%): 96 - Physical Exam General: Alert, In no apparent distress, Acute distress Respiratory: Clear to auscultation bilaterally Cardiovascular: No edema, Normal S1 S2 Gastrointestinal: Hypoactive, Distended Assessment And Plan - Current Problems (Diagnosis) (1) Incarcerated inguinal hernia Current Visit: Yes Status: Acute Plan: Not eating much ABdominal distension. Advance diet ambulate stop all narcotics . poss discharge am. SACHIN Orantes (2) HTN (hypertension) Current Visit: Yes Status: Chronic Plan: BP mild elevation Qualifiers: Hypertension type: primary hypertension Qualified Code(s): I10 - Essential (primary) hypertension (3) Ileus, postoperative Current Visit: Yes Status: Acute Plan: post op ileus
--- NOTE | 2021-08-25 20:08 | P.PN ---
Date of Service: 08/26/21 Subjective Patient continues to do well. Patient denies any new complaints. Clinical symptoms are improving. Will DC Mcgee catheter. Review of Systems General: Weakness Gastrointestinal: Nausea, Abdominal Pain Physical Examination - Vital Signs reviewed - Physical Exam General: Alert, In no apparent distress, Acute distress Respiratory: Clear to auscultation bilaterally Cardiovascular: No edema, Normal S1 S2 Gastrointestinal: Hypoactive, Distended Neuro: No focal deficits Assessment And Plan - Current Problems (Diagnosis) (1) Incarcerated inguinal hernia Current Visit: Yes Status: Acute (2) HTN (hypertension) Current Visit: Yes Status: Chronic Qualifiers: Hypertension type: primary hypertension Qualified Code(s): I10 - Essential (primary) hypertension (3) Ileus, postoperative Current Visit: Yes Status: Acute Plan: 1. Advance diet 2. DC NG tube 3. DC Mcgee catheter 4. Monitor hemodynamics closely 5. Anticipate discharge over the next 48 hours
--- NOTE | 2021-08-26 06:08 | RAD REPORT ---
EXAM DESCRIPTION: RAD - Abdomen W Erect - 08/26/2021 5:56 am CLINICAL HISTORY: Abdominal pain FINDINGS: Overall the [id number] small-bowel distention without significant change from August. Air within the colon is diminished. Postoperative changes noted. These findings probably representing an adynamic ileus. Developing mechanical obstruction can also th is appearance and can be monitored on subsequent exams if clinically indicated
[2021-08-26 06:16] LABS: Absolute Lymphocytes (CBC) 1.9 K/uL (0.7-4.9); Hematocrit 32.6 % (39.6-49.0); Lymphocytes % 19.5 % (15.3-44.8); MCV 79.5 fL (80-100)
[2021-08-26 06:37] LABS: Albumin 2.4 g/dL (3.4-5.0); Bilirubin Total 0.3 mg/dL (0.2-1.0); Potassium 3.7 mmol/L (3.5-5.1)
[2021-08-26] MEDS: INSULIN -REGULAR HUMAN 50 UNIT/0.5 ML ML SQ SCH ×4 (07:30→21:00)
[2021-08-26] MEDS: hydroCHLOROthiazide 25 MG TAB PO SCH (08:10)
[2021-08-26] MEDS: LOSARTAN POTASSIUM 50 MG TABLET PO SCH (08:10)
[2021-08-26] MEDS: TAMSULOSIN 0.4 MG SR CAP PO SCH (08:11)
[2021-08-26] MEDS: METFORMIN HCL 500 MG TAB PO SCH ×2 (08:11→21:27)
[2021-08-27 06:16] VITALS: TEMP 97.4
[2021-08-27] MEDS: INSULIN -REGULAR HUMAN 50 UNIT/0.5 ML ML SQ SCH ×2 (07:30→11:30)
[2021-08-27] MEDS: METFORMIN HCL 500 MG TAB PO SCH (10:35)
[2021-08-27] MEDS: LOSARTAN POTASSIUM 50 MG TABLET PO SCH (10:35)
[2021-08-27] MEDS: TAMSULOSIN 0.4 MG SR CAP PO SCH (10:35)
[2021-08-27] MEDS: hydroCHLOROthiazide 25 MG TAB PO SCH (10:38)
--- NOTE | 2021-08-27 10:38 | RAD REPORT ---
EXAM DESCRIPTION: RAD - Small Bowel Series - 08/27/2021 10:25 am CLINICAL HISTORY: prolong ileus COMPARISON: Abdomen Single View dated 08/24/2021; Abdomen Pelvis Wo Contrast dated 08/19/2021 FINDINGS: [employer] film shows numerous distended and dilated air-filled small bowel loops. Air and stoo l are present within nondilated colon. Air is seen in the stomach. There is no free air or pneumatosi s. No suspicious calcifications. Gastric size and mucosal fold pattern are normal. No delay in transit of contrast into the small heriberto l. Multiple distended and dilated small bowel loops are present. Small bowel mucosal pattern is mildl y prominent. No focal small bowel mass identified. Transit time to the colon was 2 hrs 15 minutes, on ly slightly outside of the 2 hour normal range. Terminal ileum was not well distended throughout the examination possibly due to peristalsis artifact. The patient has 08/19/2021 CT study showed no suspi cion or suggestion of a terminal ileum abnormality. IMPRESSION: Transit time to the colon was 2 hrs 15 min, only slightly outside of normal range. No intrinsic small bowel abnormality seen. Terminal ileum was not well-distended likely due to perist alsis affects. A recent July 2021 CT study showed no suggestion of a terminal ileum abnormality.
[2021-08-27 10:41] VITALS: BP 164/72
--- NOTE | 2021-08-27 19:24 | P.DS ---
Discharge Date: 08/27/21 Disposition: ROUTINE DISCHARGE Discharge Condition: FAIR Reason for Admission: Nausea not eating and drinking Ileus Brief History of Present Illness: Patient is a 76-year-old male with NIDDM, prostate cancer, and hypertension who presented to the ED with complaints of generalized lower abdominal pain that began around 1700. He reports it is associated with nausea but has not vomited and it radiates to his back. Vital signs stable. Labs significant for WBC 12.9, hemoglobin 11.1, creatinine 1.4, glucose 232, lipase 891, urine positive for ketones and protein. CT showed right inguinal hernia containing a short segment of distal small bowel and the right anterior bladder with concern for early incarceration. Several attempts were made to reduce the hernia in the ED but were unsuccessful. Dr. Orantes was consulted and agrees to consult on patient. He was started on Zosyn in the ED. Patient is admitted for further evaluation and treatment. Hospital Course: Patient has done well during hospital stay. patient did have prolonged hospitalization for bladder retention and he developed a postoperative ileus. However he improved. Currently he is working with physical therapy and doing much better. Clinically, patient is much better. At this time, patient is stable for discharge home. Patient will follow-up with Surgery consultants and PCP as an outpatient. Vital Signs/Physical Exam: Temp Pulse Resp BP Pulse Ox 97.4 F 62 17 164/72 H 94 08/27/21 12:00 08/27/21 12:00 08/27/21 12:00 08/27/21 12:00 08/27/21 12:00 General: Alert, In no apparent distress, Oriented x3 Laboratory Data at Discharge: WBC 9.7 K/uL (4.3-10.9) 08/26/21 05:55 Hgb 10.6 g/dL (13.6-17.9) L 08/26/21 05:55 Hct 32.6 % (39.6-49.0) L 08/26/21 05:55 Plt Count 280 K/uL (152-406) D 08/26/21 05:55 Sodium 138 mmol/L (136-145) 08/26/21 05:55 Potassium 3.7 mmol/L (3.5-5.1) 08/26/21 05:55 BUN 18 mg/dL (7-18) 08/26/21 05:55 Creatinine 1.00 mg/dL (0.55-1.3) 08/26/21 05:55 Glucose 134 mg/dL (74-106) H 08/26/21 05:55 Magnesium 2.0 mg/dL (1.8-2.4) 08/24/21 03:09 Total Bilirubin 0.3 mg/dL (0.2-1.0) 08/26/21 05:55 AST 11 U/L (15-37) L 08/26/21 05:55 ALT 25 U/L (12-78) 08/26/21 05:55 Alkaline Phosphatase 39 U/L (45-117) L 08/26/21 05:55 Triglycerides 32 mg/dL (<150) 08/20/21 05:18 Cholesterol 140 mg/dL (<200) 08/20/21 05:18 HDL Cholesterol 83 mg/dL (40-60) H 08/20/21 05:18 Cholesterol/HDL Ratio 1.69 08/20/21 05:18 Amylase 116 U/L (25-115) H 08/20/21 05:18 Lipase 61 U/L (73-393) L 08/21/21 05:29 Home Medications: Aspirin [Aspirin EC 81 MG] 1 tab PO DAILY 06/09/17 Losartan Potassium 2 tab PO DAILY 06/09/17 Metformin HCl 1 tab PO BID 06/09/17 Tamsulosin HCl 0.4 mg PO DAILY 06/09/17 hydroCHLOROthiazide [Hydrochlorothiazide] 25 mg PO DAILY 06/09/17 Diet: Regular Activity: Ad susan Followup: Osmin Orantes MD [ACTIVE - CAN ADMIT] - 1-2 Weeks (call to schedule an appointment ) Time spent managing pt's care (in minutes): 35
--- OUTSIDE RECORDS SUMMARY | 2021-09-09 02:56 | XMS REPORT | Continuity of Care Document ---
:1945 Author Organization [facility] t Address [address] [place] [address] Care Team Providers Name Role Phone Minesh Tahira Attending Clinician Unavailable Problems This patient has no known problems. Allergies, Adverse Reactions, Alerts This patient has no known allergies or adverse reactions. Medications This patient has no known medications. Procedures This patient has no known procedures. Encounters Start End Encounter Admission Attending Care Care Encounter Source Date/Time Date/Time Type Type Clinicians Facility Department ID 2021-08-19 [facility] [id number] Common 18:53:01 Formerly [facility] 2021-07-06 [facility] [id number] Common 09:43:06 Formerly [facility] 2021-04-06 [facility] [id number] Common 08:32:02 [facility]ly [facility] 2021-03-26 [facility] [id number] Common 09:31:02 [facility]ly [facility] 2021-03-18 Outpatient [facility] [id number] Common 14:18:29 [id number] [facility] 2021-09-03 2021-09-03 ambulatory [facility] [id number] Common 00:00:00 00:00:00 [facility] 2021-07-03 2021-07-03 ambulatory [facility] [id number] Common 00:00:00 00:00:00 [facility] 2021-06-08 2021-06-08 ambulatory [facility] [id number] Common 00:00:00 00:00:00 [facility] 2021-04-23 2021-04-23 ambulatory [facility] [id number] Common 00:00:00 00:00:00 [facility] 2021-04-22 2021-04-22 ambulatory [facility] [id number] Common 00:00:00 00:00:00 [facility] 2021-03-25 2021-03-25 ambulatory [facility] [id number] Common 00:00:00 00:00:00 [facility] 2021-02-23 2021-02-23 ambulatory [facility] [id number] Common 00:00:00 00:00:00 [facility] 2021-02-19 2021-02-19 ambulatory [facility] [id number] Common 00:00:00 00:00:00 [facility] 2021-01-20 2021-01-20 ambulatory [facility] [id number] Common 00:00:00 00:00:00 [facility] Results This patient has no known results.
== END 2021-08-27 15:09 | disposition home or self-care (01) | DRG 351 ==
LOC: ER 19:18 → ERHOLD 08-20 01:13 → 2ND 08-20 02:36
PROVIDERS: ADMIT Internal Medicine; ATTEND Internal Medicine
PROC: 0YU50JZ Supplement Right Inguinal Region with Synthetic Substitute, Open Approach (ICD-10-PCS; principal; 2021-08-20 16:00)
DX: K40.30 Unilateral inguinal hernia, with obstruction, without gangrene, not specified as recurrent (principal); N17.9 Acute kidney failure, unspecified; K91.89 Other postprocedural complications and disorders of digestive system; K56.7 Ileus, unspecified; C61 Malignant neoplasm of prostate; I12.9 Hypertensive chronic kidney disease with stage 1 through stage 4 chronic kidney disease, or unspecified chronic kidney disease; E11.22 Type 2 diabetes mellitus with diabetic chronic kidney disease; E11.65 Type 2 diabetes mellitus with hyperglycemia; N18.2 Chronic kidney disease, stage 2 (mild); R33.9 Retention of urine, unspecified; Z20.822 Contact with and (suspected) exposure to COVID-19
CPT/HCPCS: 36415; 74018; 74019; 74176; 74250; 80048; 80053; 80061; 81003; 81015; 82150; 82565; 82947; 83690; 83735; 85025; 85027; 87086; 87088; 94010; 96361; 96365; 96375; 97110; 97116; 97161; 97530; 99211; 99285; J1100; J1170; J2310; J2405; J2543; J2704; J2710; J3010; J3475; J7030; J7120; U0003

== ENCOUNTER 2021-09-22 08:19 | Day surgery (SDC) | payer OTHER ==
[2021-09-17 10:03] LABS: Absolute Lymphocytes (CBC) 2.1 K/uL (0.7-4.9); Hematocrit 35.1 % (39.6-49.0); Lymphocytes % 31.5 % (15.3-44.8); MCV 80.1 fL (80-100); MPV 8.1 fL (7.6-11.3); Protime INR 1.09; RBC Red Blood Cell Count 4.39 M/uL (4.33-5.43)
--- NOTE | 2021-09-17 10:04 | RAD REPORT ---
EXAM DESCRIPTION: RAD - Chest Pa And Lat (2 Views) - 09/17/2021 9:47 am CLINICAL HISTORY: Pre op pending procedure COMPARISON: Chest Single View dated 06/08/2017; Abdomen 1 View (KUB) dated 06/01/2017 FINDINGS: Lines: None. Lungs: No evidence of edema or pneumonia. Pleural: No significant pleural effusions or pneumothorax. Cardiac: The heart size is within normal limits. Bones: No acute fractures. Other: IMPRESSION: No acute cardiopulmonary disease.
[2021-09-17 10:11] LABS: SARS-CoV-2 Antigen Rapid Res Negative (Negative)
[2021-09-17 10:12] LABS: Potassium 4.1 mmol/L (3.5-5.1)
--- NOTE | 2021-09-17 13:01 | EKG ---
Test Date: 2021-09-17 Test Time: 09:27:13 Social Media Analyst: NED MEASUREMENT RESULTS: Intervals: Rate: 61 TN: 116 QRSD: 88 QT: 410 QTc: 412 [place]: P: 38 TN: 116 QRS: 71 T: 80 INTERPRETIVE STATEMENTS: Normal sinus rhythm Normal ECG Compared to ECG 06/08/2017 20:16:17 No significant changes Electronically Signed On 09-17-21 13:01:19 CDT by Rufino Torres
[2021-09-22] MEDS ORDERED: NA CHLORIDE 0.9% 1,000 ML ONE (08:32)
[2021-09-22] MEDS ORDERED: CEFAZOLIN 2 GM IN 0.9% NACL 2 GM/100 ML BAG ONE (08:32)
[2021-09-22] MEDS ORDERED: propofoL 200 MG/20 ML VIAL IV ONE (09:47)
[2021-09-22] MEDS ORDERED: FENTANYL CITR 100 MCG/2 ML ONE (09:47)
[2021-09-22] MEDS ORDERED: MIDAZOLAM HCL 2 MG/2 ML INJ ONE (09:47)
[2021-09-22] MEDS ORDERED: LIDOCAINE 1% MPF 5 ML VIAL ONE (09:47)
[2021-09-22] MEDS ORDERED: ONDANSETRON 4 MG/2 ML VIAL ONE (09:47)
[2021-09-22] MEDS ORDERED: CODEINE 30MG/APAP 300MG TAB PO PRN (14:29)
[2021-09-22 15:43] VITALS: BP 149/56; TEMP 96.7; O2SAT 99
--- NOTE | 2021-09-23 06:22 | OP ---
Surgeon: KWAN VARGAS Preoperative Diagnoses: 1.Intermediate risk, grade group 2, adenocarcinoma of the prostate, clinical stage T2c/T3a. 2.Benign prostatic hypertrophy with lower urinary tract obstruction and symptoms. Postoperative Diagnoses: 1.Intermediate risk, grade group 2, adenocarcinoma of the prostate, clinical stage T2c/T3a. 2.Benign prostatic hypertrophy with lower urinary tract obstruction and symptoms. Procedures: 1.Transrectal ultrasound-guided placement of SpaceOAR gel. 2.Transrectal ultrasound-guided placement of 2 fiducial markers in the prostate. 3.Placement of urethral Mcgee catheter. Indication For Procedure: Mr. Cam is a 76-year-old gentleman with type 2 diabetes, hypertension, and hyperlipidemia with a history of low risk prostate cancer, last confirmed on biopsy in 2016 with a PSA that had risen over the years and was now 21.2 from 02/20/2021 with a digital rectal exam revea ling a firm nodular right peter prostate and large left apical prostate nodule consistent with T2c/T3a disease consistent with intermediate to high risk prostate cancer. This was all in the setting of B PH with severe LUTS refractory to Flomax. He underwent a restaging prostate biopsy on March 25 o this year revealing a 65.84 g gland, PSA density of 0.32 and pathology revealing Salome 3 + 4 elizabeth ocarcinoma of the prostate plus perineural invasion at the right apex medially. He underwent a bone and CT scan that were unremarkable except for the presence of a 25 mm area of sclerosis at T10 verteb ral body, not confirmed on bone scan and presumed to be degenerative. He has been started on Eliquis with an initial dose provided on July 03, 2021 and the next dose planned 90 days later. He presents today for SpaceOAR gel insertion prior to definitive therapy with radiation plus the hormone therapy already initiated. Procedure In Detail: The patient was consented in the preoperative holding area before being transfe rred to the operative suite where general anesthesia was induced. He was given Ancef IV antimicrobia l prophylaxis and Pneumoboots were provided for DVT prophylaxis. He was placed in the high lithotomy position, padded and secured to the table appropriately. His scrotum was taped into his upper abdom en using an Ioban, and his perineum was prepped using Hibiclens because of an iodine suspected allerg y to shellfish. The transrectal ultrasound probe was placed into his rectum with ease and the prosta te was visualized. The ultrasound Stepper device was used to hold the probe in place, and appropriat e landmarks were identified including the seminal vesicles, the prostate gland, the apex and the blad taty. The prostate was then surveyed in its entirety in both axial and sagittal dimensions, and fiduc ial marker was initially placed in the left apical mid gland of the prostate anteriorly. An addition al fiducial marker was placed in the right base laterally. Then the needle for the SpaceOAR gel was inserted in the midline, taking care to avoid the hump of the rectum as it approached the anal sphinc ter, and was navigated beneath the prostate in the space of [place]onvilliers until the mid portion of th e prostate was achieved. Aspiration was performed and an injection of 0.5 cc of normal saline was pe rformed, which did generate a nice space in Denonvilliers fascia the prostate from the rec renetta. This was confirmed in both axial and sagittal dimensions and the needle was freely mobile and i n the center midline of the prostate. An additional puff of saline was performed to confirm before t he mixture of the 2 substances creating the SpaceOAR gel and was then injected and did create a nice separation between the rectum and the base peripheral zone of the prostate. The needle was then jemima steve, and the ultrasound probe was removed. I then untaped his genitalia and prepped his glans and pe nis with Hibiclens before passing an 18-Greek coude tip catheter into his bladder with ease. There was efflux of clear yellow urine, and 10 cc of sterile water was placed in the balloon. The catheter was connected to a leg bag, and the patient was taken out of the lithotomy position. He was then aw akened from general anesthesia, transferred to a stretcher, and then transferred to the recovery room in good condition. Complications: None. Discharge Disposition: He should follow up in the Urology Clinic in approximately 4-6 months, or jennifer roximately 1-3 months after completing radiation therapy. He should be scheduled to receive a second injection of Eligard within the next 2 weeks or approximately 90 days from his injection given aroun d July 09. They will remove the urethral Mcgee catheter tomorrow morning at 7 a.m., and if he has a ny difficulty voiding by 1 p.m., they will notify me via the office and seek followup for assistance. RAYA/LIBERTY Voice ID: [id number] Report ID: [id number]
== END 2021-09-22 15:25 | disposition home or self-care (01) ==
LOC: OR 08:19
PROVIDERS: ATTEND Urology
PROC: 3C1ZX8Z Irrigation of Indwelling Device using Irrigating Substance, External Approach (ICD-10-PCS; 2021-09-22)
PROC: 0VH43YZ Insertion of Other Device into Prostate and Seminal Vesicles, Percutaneous Approach (ICD-10-PCS; principal; 2021-09-22 10:15)
DX: C61 Malignant neoplasm of prostate (principal); Z20.822 Contact with and (suspected) exposure to COVID-19
CPT/HCPCS: 93005; 87088; 85025; 87086; 80048; 36415; 85610; 82947 ×2; 87077; 87186; 71046; 87811; 55874; 51700; J2704; J3010; J0690; J7030; J2405; J2250

== ENCOUNTER 2022-08-10 06:20 | Day surgery (SDC) | payer OTHER ==
[2022-08-02 09:11] LABS: Absolute Lymphocytes (CBC) 0.9 K/uL (0.7-4.9); Hematocrit 31.9 % (39.6-49.0); Lymphocytes % 18.5 % (15.3-44.8); MCV 80.1 fL (80-100); MPV 7.1 fL (7.6-11.3); RBC Red Blood Cell Count 3.98 M/uL (4.33-5.43)
--- NOTE | 2022-08-02 09:13 | RAD REPORT ---
EXAM DESCRIPTION: RAD - Chest Pa And Lat (2 Views) - 08/02/2022 8:59 am CLINICAL HISTORY: pre op for surgery Chest pain. COMPARISON: Chest Pa And Lat (2 Views) dated 09/17/2021; Chest Single View dated 06/08/2017; Abdomen 1 View (KUB) dated 06/01/2017 FINDINGS: The lungs are clear. The heart is normal in size. No displaced fractures. IMPRESSION: No acute or concerning finding suspected.
[2022-08-02 09:22] LABS: Protime INR 0.98
[2022-08-02 09:25] LABS: Potassium 4.6 mEq/L (3.5-5.1)
--- NOTE | 2022-08-02 12:00 | EKG ---
Test Date: 2022-08-02 Test Time: 08:38:36 Service Delivery Analyst: NIKOLAS MEASUREMENT RESULTS: Intervals: Rate: 66 GA: 130 QRSD: 80 QT: 382 QTc: 400 [place]: P: 21 GA: 130 QRS: 49 T: 84 INTERPRETIVE STATEMENTS: Sinus rhythm with occasional premature ventricular complexes Otherwise normal ECG Compared to ECG 09/17/2021 09:27:13 Ventricular premature complex(es) now present Electronically Signed On 08-02-22 12:00:12 CDT by Carlo Jones
[2022-08-05 19:08] LABS: PSA FREE 0.02 ng/mL
[2022-08-10] MEDS ORDERED: NA CHLORIDE 0.9% 1,000 ML ONE ×2 (06:47→08:53)
[2022-08-10] MEDS ORDERED: AMPICILLIN SODIUM 2 GM/VIAL VIAL ONE (06:47)
[2022-08-10] MEDS ORDERED: Gentamicin Inj 160 MG in NA CHLORIDE 0.9% 100 ML IV SCH (07:00)
[2022-08-10] MEDS ORDERED: propofoL 200 MG/20 ML VIAL IV ONE (07:14)
[2022-08-10] MEDS ORDERED: KETOROLAC 30 MG/ML INJ ONE (07:15)
[2022-08-10] MEDS ORDERED: LIDOCAINE 1% MPF 5 ML VIAL ONE (07:15)
[2022-08-10] MEDS ORDERED: FENTANYL CITR 100 MCG/2 ML ONE (07:15)
[2022-08-10] MEDS ORDERED: dexAMETHasone 10 MG/ML VIAL ONE (07:15)
[2022-08-10] MEDS ORDERED: ONDANSETRON 4 MG/2 ML VIAL ONE (07:16)
[2022-08-10] MEDS ORDERED: EPHEDRINE SULF 50 MG/ML VIAL ONE (07:56)
[2022-08-10] MEDS ORDERED: MIDAZOLAM HCL 2 MG/2 ML INJ ONE (08:04)
[2022-08-10] MEDS: HYDROMORPHONE HCL 1 MG/ML INJ ONE ×2 (08:45→08:50)
[2022-08-10] MEDS ORDERED: CODEINE 30MG/APAP 300MG TAB PO PRN (09:00)
[2022-08-10] MEDS ORDERED: PHENAZOPYRIDINE 100MG TAB PO ONE ×2 (09:00→09:46)
[2022-08-10] MEDS ORDERED: CODEINE 30MG/APAP 300MG TAB ONE (09:46)
[2022-08-10] MEDS ORDERED: ACETAMINOPHEN 500 MG TAB ONE (09:53)
[2022-08-10 10:24] VITALS: BP 112/54; TEMP 97; O2SAT 98
--- NOTE | 2022-08-10 11:52 | OP ---
Surgeon: KWAN VARGAS Preoperative Diagnoses: 1.Lower obstructive uropathy. 2.High risk prostate cancer, status post radiation, on androgen deprivation therapy. Postoperative Diagnoses: 1.Lower obstructive uropathy. 2.High risk prostate cancer, status post radiation, on androgen deprivation therapy. 3.Radiation cystitis. 4.Poor bladder compliance. Principal Procedure: Prostatic urethral lift/UroLift with 7 implants used and 6 successfully placed. Indication For Procedure: Mr. Cam is a 77-year-old gentleman who presented to [facility] with a preexisting diagnosis of low-grade prostate cancer with PSA that progressed to greater than 20, in dicative of high risk disease. He was counseled on options for management and ultimately elected to proceed with radiation therapy and androgen deprivation therapy. He has since been treated, but he d eveloped severe obstructive uropathy requiring a urethral catheter to be placed because of the severe bothersome lower urinary symptoms and large volume incomplete emptying. He was given antimicrobial therapy in preparation for surgery today and presents for that evaluation. Procedure Note In Detail: The patient was consented in the preoperative holding area before being tr ansferred to the operative suite where general anesthesia was induced using an LMA. He was given amp icillin 2 g and gentamicin 160 mg IV antimicrobial prophylaxis, and pneumo boots were provided for DV T prophylaxis. He was placed in lithotomy position, padded and secured to the table appropriately. His genitalia were prepped with Hibiclens and he was draped in standard fashion, after the urethral c atheter had been removed. The case was begun using a 20-Syriac sheath and visual obturator to earnest se the urethra and into the bladder. Of note, there was significant hematuria and cloudiness of the urine that obscured visualization despite prior antimicrobial therapy. As a result, I decompressed h is bladder of the fluid and cloudy urine, and irrigated his bladder. There was evidence of severe cy stitis that was revealed despite prior antimicrobial therapy that was likely radiation induced with s ome hemorrhage. I thus irrigated his bladder using an Naraik evacuator in order to remove the blood a nd any clot that had formed in order to be able to survey the bladder and the prostatic urethra. Aft er several rounds of irrigation and with clear urine, I was then able to visualize the prostatic uret hra and identify the landmarks. I started by placing an implant in the region of the left apex later ally. The first implant was placed at about the 3 o'clock position successfully lateralizing the tis laina in that location. I then placed an additional implant this time at the bladder neck approximatel y 1.5 to 2 cm distal to the bladder neck opening. A third implant was placed on the right side contr alaterally in the mid gland closer to the bladder neck. A fourth implant was then placed in a stacke d fashion above that implant in order to further lateralize the anterior overhanging tissue, but that implant did suffer a bone strike and failed to successfully be placed. As a result, an additional i mplant was placed on that side before additional 2 implants were then placed on the left side in the mid gland and mid apical region in a stacked fashion more anteriorly in order to elevate and open and create a continuous channel. Each implant was placed as follows: The scope was angled about 10 deg lavelle just kissing the tissue before the first pull of the trigger, then deployed the needle through t he substance of the prostate. An additional 10 degrees of angulation and compression was then undert aken to ensure complete delivery of the needle through the substance of the prostate before a second pull of the trigger left the capsular tab and partially retracted the needle. A third pull of the tr igger then completely retracted the needle and tensioned the suture before a fourth pull of the erik er left the urethral end piece after the scope had been advanced back toward the midline and advanced toward the bladder approximately 2 to 3 mm until the white of the monofilament was centered in the d elivery bay. This was performed with each of the 7 implants used, but 6 placed with 4 implants on th e patient's left side and 2 implants used on the right side. In the end, there was a continuous ante rior channel that had been created and evident with the bladder decompressed. As a result, I placed a 20-Syriac coude tipped catheter into his bladder with ease, and he was taken out of the lithotomy p osition. He was then awakened from general anesthesia, transferred to a stretcher, and then transfer red to the recovery room in good condition. Complications: None. Discharge Disposition: He will be sent home with a catheter and remove it tomorrow morning at 7 a.m. Regardless of whether he is able to successfully void or not, I asked him to come by the office for a bladder scan postvoid residual assessment tomorrow afternoon to confirm he is completely emptying. He should continue the antimicrobials he was provided preoperatively. Because of the severely poor compliance of his bladder observed intraoperatively, I expressed to his of the likely need for additional medical and potentially neuromodulatory or Botox intravesical therapy to manage his severe overactive bladder/detrusor instability. RAYA/LIBERTY Voice ID: [id number] Report ID: [id number]
== END 2022-08-10 10:45 | disposition home or self-care (01) ==
LOC: OR 06:20
PROVIDERS: ATTEND Urology
PROC: 0T7D8DZ Dilation of Urethra with Intraluminal Device, Via Natural or Artificial Opening Endoscopic (ICD-10-PCS; principal; 2022-08-10 07:30)
DX: N13.9 Obstructive and reflux uropathy, unspecified (principal); N40.1 Benign prostatic hyperplasia with lower urinary tract symptoms; N30.40 Irradiation cystitis without hematuria; E11.9 Type 2 diabetes mellitus without complications; I10 Essential (primary) hypertension
CPT/HCPCS: 93005; 87088; 85025; 87086; 80048; 36415; 85610; 82947; 87077; 87186; 84153; 84154; 71046; 52441; 52442 ×5; J2704; J2001; J1580; J2250; J3010; J1100; J1170; J2405; J0290; J7030 ×2

== ENCOUNTER 2022-08-16 23:53 | Emergency (ER) | payer OTHER ==
--- OUTSIDE RECORDS SUMMARY | 2022-08-16 23:57 | XMS REPORT | Continuity of Care Document ---
:1945 Author Organization [facility] t Address [address] [place] [address] Care Team Providers Name Role Phone Asked, No Pcp Primary Care Physician Unavailable Tahira Edge Attending Clinician Unavailable Payers Payer Name Policy Type Policy Number Effective Date Expiration Date Geovanni gomez [employer]ET[employer] 53 [id number] 2010 [facility] - 00:00:00 [facility] AET[employer] 53 [id number] [facility] Problems Condition Condition Condition Status Onset Resolution Last Treating Co mments Source Name Details Category Date Date Treatment Clinician Date [id number] Pre-op Problem Common testing [facility] [id number] Overflow [facility] [id number] Urinary Problem Commo n retention [facility] [id number] Incomplete Problem Co mmon emptying Spirit of bladder [facility] [id number] Urge Problem Common incontinen Spirit [facility] [id number] 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 [facility] [id number] Cystitis Problem Commo n [facility] [id number] Radiologic Problem Co mmon al [facility] procedure - [facility] as the Medical cause of Center abnormal reaction of the patient, or of later complicati on, without mention of misadventu re at the time of the procedure [id number] [place], [place] [id number] unspecifie Spirit d - [facility] [id number] Recurrent Problem Com mon UTI [facility] [id number] Adverse Problem Common effect of [facility] radiation, - [facility] subsequent [facility] [id number] Acute Problem Common urinary [facility] retention - [facility] [id number] Gross Problem Common hematuria [facility] [id number] Radiation Problem Comm on cystitis [facility] [id number] Androgen Problem Comm on deprivatio Spirit n therapy [facility] [id number] S/P Problem Common radiation Spirit 4-12 weeks - [facility] ago [facility] [id number] BPH loc Problem Commo n w/o ur Spirit obs/LUTS [facility] 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 - [facility] with high Medical risk of Center recurrence due to Copake score of 8 to 10 and PSA greater than 20 Lower Enlarged Problem Common urinary prostate Spirit tract with lower - [facility] symptoms urinary St due to tract [facility] benign symptoms [facility] prostatic [place] hypertroph y [id number] BPH loc w Problem Com mon urin Spirit obs/LUTS [facility] [id number] Prostate Problem Com mon 11511 nodule [facility] [id number] Cancer of Problem Comm on prostate Spirit with - [facility] intermedia [facility] recurrence Medica l risk Center (stage T2b-c or Salome 7 or PSA 10-20) Allergies, Adverse Reactions, Alerts Allergy Allergy Status Severity Reaction(s) Onset Inactive Treating Comm ents Source Name Type Date Date Clinician shrimp shrimp Active Unknown Common allergen allergen [facility] ic ic - [facility] extract extract [facility] [address] Drug Active Unknown Common allergy [facility] Social History Social Habit Start Date Stop Date Quantity Comments Source History of Tobacco [facility] - Use [facility] History of Social 2016-08-09 2016-08-[address] function 00:00:00 00:00:00 Hospital Alcohol intake 2016-04-28 2016-04-28 Current [facility] 00:[facility] 00:00:00 non-drinker of Hospital alcohol (finding) Sex Assigned At [birth year] [facility] Smoking Status Start Date Stop Date Source Never Smoker [facility] Medications Ordered Filled Start Stop Current Ordering Indication Dosage Frequency Signature Comments Components Source Medication Medication Date Date Medication? Clinician (SIG) Name Name Cephalexin Cephalexin 2022- No 1{capsu TID Cephalexin 500 MG 500 MG 03-06 le} 500 MG 00:00: 00:00 00 :[facility] 2021- No 22.5mg Commo n 02-22 [facility] 00:00: - [facility] 00 [facility] 2021- No 22.5mg Commo n 02-22 [facility] 00:00: - [facility] 00 [facility] Pr[facility] 2021- No 22.5mg Commo n 02-22 [facility] 00:00: - [facility] 00 [facility] Lorne Hansond 2021-1 No 22.5mg Commo n 02-22 [facility] 00:00: - [facility] 00 [facility] Lorne Pradhan 2021- No 22.5mg Commo n 02-22 [facility] 00:00: - [facility] 00 [facility] Lorne Hansond 2021-1 No 22.5mg Commo n 02-22 [facility] 00:00: - [facility] Lorne Pradhan 2021- No 22.5mg Commo n 02-22 [facility] 00:00: - [facility] 00 [facility] Nitrofurant Nitrofurant 2021-02- No 1{capsu QD Nitrofuran oin Monohyd oin Monohyd 0-27 05-25 le_with toin Macro 100 Macro 100 00:00: 00:00 _food} Monohyd MG MG 00 :00 Macro 100 MG Nitrofurant Nitrofurant 2021-02- No 1{capsu QD Nitrofuran oin Monohyd oin Monohyd 0-27 05-25 le_with toin Macro 100 Macro 100 00:00: 00:00 _food} Monohyd MG MG 00 :00 Macro 100 MG Nitrofurant Nitrofurant 2021-02- No 1{capsu QD Nitrofuran oin Monohyd oin Monohyd 0-27 05-25 le_with toin Macro 100 Macro 100 00:00: 00:00 _food} Monohyd MG MG 00 :00 Macro 100 MG Nitrofurant Nitrofurant 2021-02- No 1{capsu QD Nitrofuran oin Monohyd oin Monohyd 0-27 05-25 le_with toin Macro 100 Macro 100 00:00: 00:00 _food} Monohyd MG MG 00 :00 Macro 100 MG Nitrofurant Nitrofurant 2021-02- No 1{capsu QD Nitrofuran oin Monohyd oin Monohyd 0-27 05-25 le_with toin Macro 100 Macro 100 00:00: 00:00 _food} Monohyd MG MG 00 :00 Macro 100 MG Nitrofurant Nitrofurant 2021-02- No 1{capsu QD Nitrofuran oin Monohyd oin Monohyd 0-27 05-25 le_with toin Macro 100 Macro 100 00:00: 00:00 _food} Monohyd MG MG 00 :00 Macro 100 MG Nitrofurant Nitrofurant 2021-02- No 1{capsu QD Nitrofuran oin Monohyd oin Monohyd 0-27 05-25 le_with toin Macro 100 Macro 100 00:00: 00:00 _food} Monohyd MG MG 00 :00 Macro 100 MG Nitrofurant Nitrofurant 2021-02- No Nitrofuran oin Monohyd oin Monohyd 0-27 04-14 toin Macro 100 Macro 100 00:00: 00:00 Monohyd MG MG 00 :00 Macro 100 MG Cefuroxime Cefuroxime 2021-02- No 1{table BID Cefuroxime Axetil 250 Axetil 250 0-27 11-06 t} Axetil 250 MG MG 00:00: 00:00 MG 00 :00 Cefuroxime Cefuroxime 2021-02- No 1{table BID Cefuroxime Axetil 250 Axetil 250 0-27 11-06 t} Axetil 250 MG MG 00:00: 00:00 MG 00 :00 Cefuroxime Cefuroxime 2021-02- No 1{table BID Cefuroxime Axetil 250 Axetil 250 012-27 t} Axetil 250 MG MG 00:00: 00:00 MG 00 :00 Cipro 500 Cipro 500 2021-02- No 1{table BID Cipro 500 MG MG 012-12 t} MG 00:00: 00:00 00 :00 Cipro 500 Cipro 500 2021-02- No 1{table BID Cipro 500 MG MG 012-12 t} MG 00:00: 00:00 00 :00 Lorne Hansond 2-0 No 22.5mg Commo n 8-05 [facility] 00:00: - [facility] 00 [facility] Lorne Hansond 2-0 No 22.5mg Commo n 8-05 [facility] 00:00: - [facility] 00 [facility] Lorne Hansond 2-0 No 22.5mg Commo n 8-05 [facility] 00:00: - [facility] 00 [facility] Lorne Hansond 2-0 No 22.5mg Commo n 8-05 [facility] 00:00: - [facility] 00 [facility] Lorne Hansond 2-0 No 22.5mg Commo n 8-05 [facility] 00:00: - [facility] 00 [facility] Lorne Hansond 2-0 No 22.5mg Commo n 8-05 [facility] 00:00: - [facility] 00 [facility] Lorne Hansond 2-0 No 22.5mg Commo n 8-05 [facility] 00:00: - [facility] 00 [facility] Lorne Hansond 2-0 No 22.5mg Commo n 8-05 [facility] 00:00: - [facility] 00 [facility] Lorne Hansond 2-0 No 22.5mg Commo n 8-05 [facility] 00:00: - [facility] 00 [facility] Lorne Hansond 2-0 No 22.5mg Commo n 8-05 [facility] 00:00: - [facility] 00 [facility] Lorne Hansond 2-0 No 22.5mg Commo n 8-05 [facility] 00:00: - [facility] 00 [facility] Lorne Pradhan 2-0 No 22.5mg Commo n 09-25 [facility] 00:00: - [facility] 00 [facility] Lorne Hansond 2-0 No 22.5mg Commo n 09-25 [facility] 00:00: - [facility] 00 [facility] Solifenacin Solifenacin 2021-0 2022- No 1{table QD Solifenaci Succinate 5 Succinate 5 09-25 t} n MG MG 00:00: 00:00 Succinate 00 :00 5 MG Solifenacin Solifenacin 2-0 2022- No 1{table QD Solifenaci Succinate 5 Succinate 5 09-25 t} n MG MG 00:00: 00:00 Succinate 00 :00 5 MG Solifenacin Solifenacin 2-0 2022- No 1{table QD Solifenaci Succinate 5 Succinate 5 09-25 t} n MG MG 00:00: 00:00 Succinate 00 :00 5 MG Solifenacin Solifenacin 2-0 2022- No 1{table QD Solifenaci Succinate 5 Succinate 5 09-25 t} n MG MG 00:00: 00:00 Succinate 00 :00 5 MG Solifenacin Solifenacin 2-0 2022- No 1{table QD Solifenaci Succinate 5 Succinate 5 09-25 t} n MG MG 00:00: 00:00 Succinate 00 :00 5 MG Solifenacin Solifenacin 2-0 2022- No 1{table QD Solifenaci Succinate 5 Succinate 5 09-25 t} n MG MG 00:00: 00:00 Succinate 00 :00 5 MG Solifenacin Solifenacin 2-0 2022- No 1{table QD Solifenaci Succinate 5 Succinate 5 09-25 t} n MG MG 00:00: 00:00 Succinate 00 :00 5 MG Solifenacin Solifenacin 2-0 2022- No 1{table QD Solifenaci Succinate 5 Succinate 5 09-25 t} n MG MG 00:00: 00:00 Succinate 00 :00 5 MG Solifenacin Solifenacin 2-0 2022- No 1{table QD Solifenaci Succinate 5 Succinate 5 09-25 t} n MG MG 00:00: 00:00 Succinate 00 :00 5 MG Solifenacin Solifenacin 2021-0 2- No 1{table QD Solifenaci Succinate 5 Succinate 5 09-25 t} n MG MG 00:00: 00:00 Succinate 00 :00 5 MG Solifenacin Solifenacin 2021-0 2- No 1{table QD Solifenaci Succinate 5 Succinate 5 09-25 t} n MG MG 00:00: 00:00 Succinate 00 :00 5 MG Eligard Eligard 2-0 No 22.5mg Commo n 5-13 [facility] 00:00: - [facility] 00 [facility] Valentind Eligard 2-0 No 22.5mg Commo n 5-13 [facility] 00:00: - [facility] 00 [facility] Valentind Kathygard 2-0 No 22.5mg Commo n 5-13 [facility] 00:00: - [facility] 00 [facility] Valentind Eligard 2-0 No 22.5mg Commo n 5-13 [facility] 00:00: - [facility] 00 [facility] Valentind Eligard 2-0 No 22.5mg Commo n 5-13 [facility] 00:00: - [facility] 00 [facility] Valentind Eligard 2-0 No 22.5mg Commo n 5-13 [facility] 00:00: - [facility] 00 [facility] Valentind Eligard 2-0 No 22.5mg Commo n 5-13 [facility] 00:00: - [facility] 00 [facility] Valentind Eligard 2-0 No 22.5mg Commo n 5-13 [facility] 00:00: - [facility] 00 [facility] Kathygard Eligard 2022-0 No 22.5mg Commo n 5-13 [facility] 00:00: - [facility] 00 [facility] Valentind Eligard 2-0 No 22.5mg Commo n 5-13 [facility] 00:00: - [facility] 00 [facility] Valentind Eligard 2-0 No 22.5mg Commo n 5-13 [facility] 00:00: - [facility] 00 [facility] Lorne Pradhan 2-0 No 22.5mg Commo n 5-13 [facility] 00:00: - [facility] 00 [facility] Lorne Pradhan 2-0 No 22.5mg Commo n 5- [facility] 00:00: - [facility] 00 [facility] Lorne Pradhan 2-0 No 22.5mg Commo n 5-13 [facility] 00:00: - [facility] 00 [facility] Lorne Hansond 2-0 No 22.5mg Commo n 5-13 [facility] 00:00: - [facility] 00 [facility] Lorne Pradhan 2-0 No 22.5mg Commo n 5- [facility] 00:00: - [facility] 00 [facility] Lorne Pradhan 2-0 No 22.5mg Commo n 5- [facility] 00:00: - [facility] 00 [facility] Lorne Pradhan 2-0 No 22.5mg Commo n 5- [facility] 00:00: - [facility] 00 [facility] Bicalutamid Bicalutamid 2021-0 No 1{table QD Bicalutami e 50 MG e 50 MG 4-18 t} de 50 MG 00:00: 00 Bicalutamid Bicalutamid 2021-0 No 1{table QD Bicalutami e 50 MG e 50 MG 4-18 t} de 50 MG 00:00: 00 Bicalutamid Bicalutamid 2021-0 No 1{table QD Bicalutami e 50 MG e 50 MG 4-18 t} de 50 MG 00:00: 00 Bicalutamid Bicalutamid 2021-0 No 1{table QD Bicalutami e 50 MG e 50 MG 4-18 t} de 50 MG 00:00: 00 Bicalutamid Bicalutamid 2021-0 No 1{table QD Bicalutami e 50 MG e 50 MG 4-18 t} de 50 MG 00:00: 00 Bicalutamid Bicalutamid 2021-0 No 1{table QD Bicalutami e 50 MG e 50 MG 4-18 t} de 50 MG 00:00: 00 Bicalutamid Bicalutamid 0 No 1{table QD Bicalutami e 50 MG e 50 MG 4-18 t} de 50 MG 00:00: 00 Bicalutamid Bicalutamid 2021-0 No 1{table QD Bicalutami e 50 MG e 50 MG 4-18 t} de 50 MG 00:00: 00 Bicalutamid Bicalutamid 2021-0 No 1{table QD Bicalutami e 50 MG e 50 MG 4-18 t} de 50 MG 00:00: 00 Bicalutamid Bicalutamid 2021-0 No 1{table QD Bicalutami e 50 MG e 50 MG 4-18 t} de 50 MG 00:00: 00 Bicalutamid Bicalutamid 2021-0 No 1{table QD Bicalutami e 50 MG e 50 MG 4-18 t} de 50 MG 00:00: 00 Bicalutamid Bicalutamid 2021-0 No 1{table QD Bicalutami e 50 MG e 50 MG 4-18 t} de 50 MG 00:00: 00 Bicalutamid Bicalutamid 2021-0 No 1{table QD Bicalutami e 50 MG e 50 MG 4-18 t} de 50 MG 00:00: 00 Bicalutamid Bicalutamid 2021-0 No 1{table QD Bicalutami e 50 MG e 50 MG 4-18 t} de 50 MG 00:00: 00 Bicalutamid Bicalutamid 2021-0 No 1{table QD Bicalutami e 50 MG e 50 MG 4-18 t} de 50 MG 00:00: 00 Bicalutamid Bicalutamid 2021-0 No 1{table QD Bicalutami e 50 MG e 50 MG 4-18 t} de 50 MG 00:00: 00 Bicalutamid Bicalutamid 2021-0 No 1{table QD Bicalutami e 50 MG e 50 MG 4-18 t} de 50 MG 00:00: 00 Bicalutamid Bicalutamid 2021-0 No 1{table QD Bicalutami e 50 MG e 50 MG 4-18 t} de 50 MG 00:00: 00 Bicalutamid Bicalutamid 2021-0 No 1{table QD Bicalutami e 50 MG e 50 MG 4-18 t} de 50 MG 00:00: 00 Gentamicin Gentamicin 2-0 No 240mg Common 80mg 80mg 2 [facility] 00:00: - [facility] Gentamicin Gentamicin 2-0 No 240mg Common 80mg 80mg 2 [facility] 00:00: - [facility] Gentamicin Gentamicin 2-0 No 240mg Common 80mg 80mg 2 [facility] 00:00: - [facility] Gentamicin Gentamicin 2-0 No 240mg Common 80mg 80mg 2 [facility] 00:00: - [facility] Gentamicin Gentamicin 2-0 No 240mg Common 80mg 80mg 2 [facility] 00:00: - [facility] Gentamicin Gentamicin 2-0 No 240mg Common 80mg 80mg 2 [facility] 00:00: - [facility] Gentamicin Gentamicin 2-0 No 240mg Common 80mg 80mg 2 [facility] 00:00: - [facility] Gentamicin Gentamicin 2-0 No 240mg Common 80mg 80mg 2 [facility] 00:00: - [facility] Gentamicin Gentamicin 2-0 No 240mg Common 80mg 80mg 2 [facility] 00:00: - [facility] Gentamicin Gentamicin 2-0 No 240mg Common 80mg 80mg 2 [facility] 00:00: - [facility] Gentamicin Gentamicin 2-0 No 240mg Common 80mg 80mg 2 [facility] 00:00: - [facility] Gentamicin Gentamicin 2-0 No 240mg Common 80mg 80mg 2 [facility] 00:00: - [facility] Gentamicin Gentamicin 2-0 No 240mg Common 80mg 80mg 2 [facility] 00:00: - [facility] Gentamicin Gentamicin 2022-0 No 240mg Common 80mg 80mg 2 [facility] 00:00: - [facility] Gentamicin Gentamicin 2022-0 No 240mg Common 80mg 80mg 2- [facility] 00:00: - [facility] Gentamicin Gentamicin 2022-0 No 240mg Common 80mg 80mg 2- [facility] 00:00: - [facility] Gentamicin Gentamicin 2022-0 No 240mg Common 80mg 80mg 03-25 [facility] 00:00: - [facility] Gentamicin Gentamicin 2021-0 No 240mg Common 80mg 80mg 03-25 [facility] 00:00: [facility] Gentamicin Gentamicin 2021-0 No 240mg Common 80mg 80mg 03-25 [facility] 00:00: - [facility] Gentamicin Gentamicin 0 No 240mg Common 80mg 80mg 03-25 [facility] 00:00: - [facility] Gentamicin Gentamicin 0 No 240mg Common 80mg 80mg 03-25 [facility] 00:00: - [facility] No Known No Known No Common Medications Medications [facility] No Known No Known No Common Medications Medications [facility] No Known No Known No Common Medications Medications [facility] Vital Signs Vital Name Observation Time Observation Value Comments Source height 2022-01-13 15:30:00 69 [in_i] [facility] weight 2022-01-13 15:30:00 163.8 [lb_av] [facility] temperature 2022-01-13 15:30:00 97.6 [degF] [facility] bmi 2022-01-13 15:30:00 24.19 kg/m2 [facility] oximetry 2022-01-13 15:30:00 98 % [facility] respiratory rate 2022-01-13 15:30:00 18 /min Comm on [facility] blood pressure 2022-01-13 15:30:00 156 mm[Hg] Common [facility] - systolic [facility] blood pressure 2022-01-13 15:30:00 70 mm[Hg] [facility] - diastolic [facility] height 2021-12-23 17:00:00 69 [in_i] [facility] weight 2021-12-23 17:00:00 162.2 [lb_av] [facility] temperature 2021-12-23 17:00:00 97.5 [degF] Common [facility] bmi 2021-12-23 17:00:00 23.95 [facility] oximetry 2021-12-23 17:00:00 99 % Common [facility] respiratory rate 2021-12-23 17:00:00 18 /min Comm on [facility] blood pressure 2021-12-23 17:00:00 161 mm[Hg] Common [facility] - systolic [facility] blood pressure 2021-12-23 17:00:00 72 mm[Hg] Common [facility] - diastolic [facility] height 2021-12-17 08:30:00 69 [in_i] Common [facility] weight 2021-12-17 08:30:00 165 [lb_av] [facility] temperature 2021-12-17 08:30:00 97.3 [degF] [facility] bmi 2021-12-17 08:30:00 24.36 kg/m2 [facility] oximetry 2021-12-17 08:30:00 99 % Common [facility] respiratory rate 2021-12-17 08:30:00 18 /min Comm on [facility] blood pressure 2021-12-17 08:30:00 151 mm[Hg] Common [facility] - systolic [facility] blood pressure 2021-12-17 08:30:00 69 mm[Hg] [facility] - diastolic [facility] height 2021-12-02 09:00:00 69 [in_i] Common [facility] weight 2021-12-02 09:00:00 164 [lb_av] [facility] temperature 2021-12-02 09:00:00 97.7 [degF] [facility] bmi 2021-12-02 09:00:00 24.22 kg/m2 Common [facility] oximetry 2021-12-02 09:00:00 96 % Common S pirit - [facility] respiratory rate 2021-12-02 09:00:00 16 /min Comm on [facility] blood pressure 2021-12-02 09:00:00 174 mm[Hg] Common [facility] - systolic [facility] blood pressure 2021-12-02 09:00:00 73 mm[Hg] Common [facility] - diastolic [facility] height 2021-09-25 12:30:00 69 [in_i] Common S pirit [facility] weight 2021-09-25 12:30:00 160.8 [lb_av] [facility] temperature 2021-09-25 12:30:00 98.4 [degF] Common [facility] bmi 2021-09-25 12:30:00 23.74 [facility] oximetry 2021-09-25 12:30:00 98 % Common [facility] respiratory rate 2021-09-25 12:30:00 18 /min Comm on [facility] blood pressure 2021-09-25 12:30:00 152 mm[Hg] Common [facility] - systolic [facility] blood pressure 2021-09-25 12:30:00 67 mm[Hg] Common [facility] - diastolic [facility] height 2021-09-10 16:00:00 69 [in_i] Common S pirit [facility] weight 2021-09-10 16:00:00 159.8 [lb_av] Common [facility] temperature 2021-09-10 16:00:00 98.0 [degF] Common S pirit [facility] bmi 2021-09-10 16:00:00 23.6 kg/m2 [facility] oximetry 2021-09-10 16:00:00 98 % Common [facility] respiratory rate 2021-09-10 16:00:00 16 /min Comm on [facility] blood pressure 2021-09-10 16:00:00 157 mm[Hg] [facility] - systolic [facility] blood pressure 2021-09-10 16:00:00 73 mm[Hg] [facility] - diastolic [facility] height 2021-09-03 15:45:00 69 [in_i] [facility] weight 2021-09-03 15:45:00 166 [lb_av] Common S pirit [facility] temperature 2021-09-03 15:45:00 98.7 [degF] Common S [facility]irit [facility] bmi 2021-09-03 15:45:00 24.51 kg/m2 Common S pirit [facility] oximetry 2021-09-03 15:45:00 99 % [facility] respiratory rate 2021-09-03 15:45:00 18 /min Comm on [facility] blood pressure 2021-09-03 15:45:00 175 mm[Hg] [facility] - systolic [facility] blood pressure 2021-09-03 15:45:00 73 mm[Hg] [facility] - diastolic [facility] height 2021-07-03 09:30:00 69 [in_i] Common [facility] weight 2021-07-03 09:30:00 173.2 [lb_av] Common [facility] temperature 2021-07-03 09:30:00 97.4 [degF] Common S pirit [facility] bmi 2021-07-03 09:30:00 25.57 kg/m2 Common S pirit [facility] oximetry 2021-07-03 09:30:00 99 % Common S pirit [facility] respiratory rate 2021-07-03 09:30:00 16 /min Comm on [facility] blood pressure 2021-07-03 09:30:00 168 mm[Hg] [facility] - systolic [facility] blood pressure 2021-07-03 09:30:00 71 mm[Hg] [facility] - diastolic [facility] height 2021-06-08 14:45:00 69 [in_i] Common [facility] weight 2021-06-08 14:45:00 176.8 [lb_av] [facility] temperature 2021-06-08 14:45:00 97.3 [degF] Common S pirit [facility] bmi 2021-06-08 14:45:00 26.11 kg/m2 Common S pirit [facility] oximetry 2021-06-08 14:45:00 98 % Common [facility] respiratory rate 2021-06-08 14:45:00 16 /min Comm on [facility] blood pressure 2021-06-08 14:45:00 178 mm[Hg] Common [facility] - systolic [facility] blood pressure 2021-06-08 14:45:00 70 mm[Hg] [facility] - diastolic [facility] height 2021-04-22 17:45:00 69 [in_i] Common [facility] weight 2021-04-22 17:45:00 185 [lb_av] Common [facility] temperature 2021-04-22 17:45:00 97.8 [degF] Common S pirit [facility] bmi 2021-04-22 17:45:00 27.32 kg/m2 [facility] oximetry 2021-04-22 17:45:00 98 % Common [facility] respiratory rate 2021-04-22 17:45:00 16 /min Comm on [facility] blood pressure 2021-04-22 17:45:00 132 mm[Hg] [facility] - systolic [facility] blood pressure 2021-04-22 17:45:00 60 mm[Hg] [facility] - diastolic [facility] height 2021-03-25 16:30:00 69 [in_i] [facility] weight 2021-03-25 16:30:00 185 [lb_av] Common [facility] temperature 2021-03-25 16:30:00 98.6 [degF] [facility] bmi 2021-03-25 16:30:00 27.32 kg/m2 [facility] respiratory rate 2021-02-19 09:00:00 18 /min Comm on [facility] blood pressure 2021-02-19 09:00:00 158 mm[Hg] [facility] - systolic [facility] blood pressure 2021-02-19 09:00:00 68 mm[Hg] [facility] - diastolic [facility] height 2021-02-19 09:00:00 69 [in_i] [facility] weight 2021-02-19 09:00:00 185.6 [lb_av] [facility] temperature 2021-02-19 09:00:00 97.4 [degF] [facility] bmi 2021-02-19 09:00:00 27.41 kg/m2 [facility] oximetry 2021-02-19 09:00:00 97 % [facility] height 2021-01-20 08:40:00 69 [in_i] [facility] weight 2021-01-20 08:40:00 189 [lb_av] [facility] temperature 2021-01-20 08:40:00 97.2 [degF] [facility] bmi 2021-01-20 08:40:00 27.91 kg/m2 [facility] oximetry 2021-01-20 08:40:00 98 % [facility] blood pressure 2021-01-20 08:40:00 160 mm[Hg] Common [facility] - systolic [facility] blood pressure 2021-01-20 08:40:00 72 mm[Hg] Common [facility] - diastolic [facility] Procedures This patient has no known procedures. Plan of Care Planned Activity Planned Date Details Comments Source Future Scheduled 2022-08-07 [facility] 00:25:13 malignant neoplasm of colon (procedure) [code = 116389786] Future Scheduled 2022-08-07 COVID-19 VACCINE (#1) [facility] 00:25:13 [code = COVID-19 VACCINE (#1)] Future Scheduled 2022-08-07 [facility] 00:25:13 malignant neoplasm of colon (procedure) [code = 129991493] Future Scheduled 2022-08-07 [facility] 00:25:13 malignant neoplasm of colon (procedure) [code = 997041967] Future Scheduled 2022-08-07 SHINGLES VACCINES (1 [facility] 00:25:13 of 2) [code = SHINGLES VACCINES (1 of 2)] Future Scheduled 2022-08-07 65[facility] 00:25:13 VACCINE (1 - PCV) [code = 65+ PNEUMOCOCCAL VACCINE (1 - PCV)] Future Scheduled 2022-08-07 [facility] 00:25:13 [code = INFLUENZA VACCINE] Future Scheduled 2022-08-07 [facility] 00:25:13 malignant neoplasm of colon (procedure) [code = 865362615] Future Scheduled 2022-08-07 [facility] 00:25:13 malignant neoplasm of colon (procedure) [code = 221326139] Encounters Start End Encounter Admission Attending Care Care Encounter Source Date/Time Date/Time Type Type Clinicians Facility Department ID 2022-06-11 [facility], [facility] [id number] Common 08:58:01 [facility] [id number] [facility] 2021-10-09 [facility], [facility] [id number] Common 09:41:02 [facility] 2021-08-19 [facility], [facility] [id number] Common 18:53:01 [facility] 2021-07-06 Outpatient [facility], [facility] [id number] Common 09:43:06 [facility] 2021-04-06 Outpatient [facility], [facility] [id number] Common 08:32:02 [facility] 2021-03-26 Outpatient [facility], [facility] [id number] Common 09:31:02 [facility] 2021-03-18 Outpatient [facility] [id number] Common 14:18:29 [id number] [facility] 2022-03-06 2022-03-06 (TEL) [facility] [id number] Co mmon 00:00:00 00:00:00 [facility] 2022-02-24 2022-02-24 ([place]) Nurse [facility] [id number] Common 00:00:00 00:00:00 Visit [facility] 2022-01-13 2022-01-13 OFFICE [facility] ST[facility] [id number] Co mmon 00:00:00 00:00:00 VISIT [facility] PT - [facility] LEVEL 5 [facility] 2021-12-28 2021-12-28 (TEL) STLMLC ST[facility] [id number] Co mmon 00:00:00 00:00:00 [facility] 2021-12-23 2021-12-23 OFFICE [facility]C STL[facility]C [id number] Co mmon 00:00:00 00:00:00 VISIT EST Spir it PT LEVEL 3 - [facility] 2021-12-23 2021-12-23 (TEL) STLMLC ST[facility] [id number] Co mmon 00:00:00 00:00:00 [facility] 2021-12-18 2021-12-18 OFFICE [facility] ST[facility] [id number] Co mmon 00:00:00 00:00:00 VISIT EST Spir it PT LEVEL 3 - [facility] 2021-12-17 2021-12-17 OFFICE ST[facility]C STL[facility]C [id number] Co mmon 00:00:00 00:00:00 VISIT [facility] - [facility] LEVEL 4 [facility] 2021-12-02 2021-12-02 OFFICE [facility]C STL[facility]C [id number] Co mmon 00:00:00 00:00:00 VISIT [facility] - [facility] LEVEL 4 [facility] 2021-10-30 2021-10-30 (ESTPT) STLMLC STL[facility]C [id number] Co mmon 00:00:00 00:00:00 Janina valadez Patient - [facility] 2021-10-29 2021-10-29 (TEL) STLMLC STLMLC [id number] Co mmon 00:00:00 00:00:00 [facility] 2021-09-25 2021-09-25 OFFICE STLMLC STL[facility]C [id number] Co mmon 00:00:00 00:00:00 VISIT [facility] - [facility] LEVEL 4 [facility] 2021-09-16 2021-09-16 (TEL) STLMLC STL[facility]C [id number] Co mmon 00:00:00 00:00:00 [facility] 2021-09-14 2021-09-14 (TEL) STLMLC ST[facility]C [id number] Co mmon 00:00:00 00:00:00 [facility] 2021-09-10 2021-09-10 OFFICE ST[facility]C STL[facility]C [id number] Co mmon 00:00:00 00:00:00 VISIT [facility] PT - [facility] LEVEL 2 [facility] 2021-09-03 2021-09-03 OFFICE [facility]C ST[facility]C [id number] Co mmon 00:00:00 00:00:00 VISIT [facility] PT - [facility] LEVEL 4 [facility] 2021-07-03 2021-07-03 OFFICE [facility]C STL[facility]C [id number] Co mmon 00:00:00 00:00:00 VISIT [facility] PT - [facility] LEVEL 4 [facility] 2021-06-08 2021-06-08 OFFICE [facility]C ST[facility]C [id number] Co mmon 00:00:00 00:00:00 VISIT [facility] PT - [facility] LEVEL 4 [facility] 2021-04-23 2021-04-23 (TEL) STLMLC STL[facility]C [id number] Co mmon 00:00:00 00:00:00 Spirit - [facility] 2021-04-22 2021-04-22 OFFICE [facility]C ST[facility]C [id number] Co mmon 00:00:00 00:00:00 VISIT [facility] PT - [facility] LEVEL 4 [facility] 2021-03-25 2021-03-25 (PROC) STLMLC ST[facility] [id number] Co mmon 00:00:00 00:00:00 Procedure Spir it - [facility] 2021-02-23 2021-02-23 (TEL) STL[facility]C ST[facility]C [id number] Co mmon 00:00:00 00:00:00 Spirit - [facility] 2021-02-19 2021-02-19 OFFICE STL[facility]C STL[facility]C [id number] Co mmon 00:00:00 00:00:00 VISIT Valente ALBERTS PT - [facility] LEVEL 4 [facility] 2021-01-20 2021-01-20 OFFICE STLMLC STLMLC [id number] Co mmon 00:00:00 00:00:00 VISIT ADELITA Chung it PT LEVEL 3 - [facility] Results This patient has no known results.
[2022-08-17 01:10] LABS: Specific Gravity 1.015 (1.005-1.030); Urine Bacteria <20 /HPF (<20); Urine Bilirubin NEGATIVE (Negative); Urine Blood 3+ (OVER) (Negative); Urine Clarity Extremely Turbid (Clear); Urine Color Light-Orange (Yellow); Urine Glucose NEGATIVE (Negative); Urine Protein 2+ (Negative); Urine RBC >50 /HPF (None Seen); Urine Urobilinogen Normal (Normal); Urine WBC Clump Many /HPF (None Seen)
[2022-08-17] MEDS ORDERED: CEFTRIAXONE 1000 MG/VIAL ONE (01:22)
[2022-08-17] MEDS ORDERED: WATER FOR INJ,STERILE 10 ML ONE (01:22)
[2022-08-17] MEDS ORDERED: NA CHLORIDE 0.9% 500 ML ONE (01:22)
[2022-08-17 01:38] LABS: Absolute Lymphocytes (CBC) 0.6 K/uL (0.7-4.9); Hematocrit 30.1 % (39.6-49.0); MPV 7.6 fL (7.6-11.3); RBC Red Blood Cell Count 3.82 M/uL (4.33-5.43)
[2022-08-17 01:50] LABS: Albumin 3.4 g/dL (3.4-5.0); Bilirubin Total 0.2 mg/dL (0.2-1.0); Protein, Total 7.4 g/dL (6.4-8.2)
--- NOTE | 2022-08-17 02:14 | ER ---
Nurse's Notes [facility] Name: Allan Cam Age: 77 yrs Sex: Male : 1945 Arrival Date: 08/16/2022 Time: 23:53 Bed 15 Private MD: Diagnosis: Retention of urine, unspecified-PVR 200;UTI/ Urinary tract infection, site not specified Presentation: 08/17 00:18 Chief complaint: Spouse and/or significant other states: He has prostate cancer and kd3 last Tuesday he had a Uro lift done to try to help with his retention. Prior to that he had a catheter in for 6 months. I don't think the surgery is helping because he still is having a hard time going. Dr. Kay told us to come tot the ER for a catheter. Coronavirus screen: Vaccine status: Patient reports receiving the 2nd dose of the covid vaccine. Ebola Screen: No symptoms or risks identified at this time. Initial Sepsis Screen: Does the patient meet any 2 criteria? No. Patient's initial sepsis screen is negative. Does the patient have a suspected source of infection? No. Patient's initial sepsis screen is negative. Risk Assessment: Do you want to hurt yourself or someone else? Patient reports no desire to harm self or others. Onset of symptoms was August 17, 2022. 00:18 Method Of Arrival: Ambulatory kd3 00:18 Acuity: MIO 3 kd3 Triage Assessment: 00:21 General: Appears uncomfortable, Behavior is calm, cooperative. Pain: Complains of pain kd3 in suprapubic area. Historical: - PMHx: 00:21 Diabetes - NIDDM; Hypertension; Prostate Cancer; kd3 - Immunization history:: Adult Immunizations up to date. - Social history:: Smoking status: Patient/guardian denies using tobacco, but has a distant history of tobacco abuse. Screenin:34 [facility] ED Fall Risk Assessment (Adult) History of falling in the last 3 months, rv including since admission No falls in past 3 months (0 pts) Confusion or Disorientation No (0 pts) Intoxicated or Sedated No (0 pts) Impaired Gait No (0 pts) Mobility Assist Device Used No (0 pt) Altered Elimination No (0 pt) Score/Fall Risk Level 0 - 2 = Low Risk Oriented to surroundings, Maintained a safe environment, Educated pt \T\ family on fall prevention, incl call for assistance when getting out of bed, Assessed \T\ reinforced patient's understanding of fall precautions, Provided non-skid footwear, Hourly rounding (assess needs \T\ fall precautionary measures) done, Used ambulatory aids as needed (educated on \T\ assisted with), Used gait belt as appropriate. Abuse screen: Denies threats or abuse. Denies injuries from another. Nutritional screening: No deficits noted. Tuberculosis screening: No symptoms or risk factors identified. Assessment: 01:00 General: Appears uncomfortable, Behavior is calm, cooperative. rv 01:00 Pain: Complains of pain in suprapubic area. Neuro: Level of Consciousness is awake, rv alert, obeys commands, Oriented to person, place, time, situation. Cardiovascular: Capillary refill < 3 seconds. Respiratory: Airway is patent Respiratory effort is even, unlabored. GI: No signs and/or symptoms were reported involving the gastrointestinal system. : Reports inability to void. Vital Signs: 00:18 Weight 70.31 kg; kd3 00:24 BP 155 / 78; Pulse 74; Resp 15 S; Temp 98.4; Pulse Ox 100% on R/A; ha1 01:34 BP 131 / 58; Pulse 73; Resp 17; Pulse Ox 100% on R/A; rv 02:33 BP 124 / 76; Pulse 71; Resp 17; Temp 98; Pulse Ox 100% ; rv [place] Coma Score: 02:34 Eye Response: spontaneous(4). Motor Response: obeys commands(6). Verbal Response: rv oriented(5). Total: 15. ED Course: 08/16 23:58 Patient arrived in ED. ja2 08/17 00:00 Zeferino Navarro MD is Attending Physician. janeth 00:21 Triage completed. kd3 00:21 Arm band placed on right wrist. kd3 00:24 Urinalysis w/ reflexes Sent. ha1 00:41 Rommel Smiley, BETTIE is Primary Nurse. rv 01:00 Mcgee cath inserted, using sterile technique, 16 Fr., by pr, balloon inflated, to rv gravity drainage, returned clear yellow urine. Patient tolerated well. 01:22 Comprehensive Metabolic Panel Sent. bc6 01:22 CBC with Diff Sent. bc6 01:22 Inserted saline lock: 22 gauge in right antecubital area, using aseptic technique. bc6 01:34 Patient has correct armband on for positive identification. Client placed on continuous rv cardiac and pulse oximetry monitoring. NIBP monitoring applied. 02:03 CT Stone Protocol In Process Unspecified. EDMS 02:13 Simón Muñoz MD is Referral Physician. janeth 02:33 No provider procedures requiring assistance completed. IV discontinued, intact, rv bleeding controlled, No redness/swelling at site. Pressure dressing applied. Administered Medications: 01:04 Not Given (Duplicate Order): Flomax PO 0.4 mg PO once janeth 01:33 Drug: Rocephin IV 1 grams Route: IV; Rate: per protocol; Site: right antecubital; rv 02:32 Follow up: Response: No adverse reaction rv 01:33 Drug: NS 0.9% IV 500 ml Route: IV; Rate: bolus; Site: right antecubital; rv 02:32 Follow up: IV Status: Completed infusion; IV Intake: 500ml rv 02:32 Drug: LevOfloxacin PO 750 mg Route: PO; rv Medication: 01:34 VIS not applicable for this client. rv Intake: 02:32 IV: 500ml; Total: 500ml. rv Outcome: 02:13 Discharge ordered by MD. janeth 02:33 Discharged to home ambulatory, with family. rv 02:33 Condition: improved 02:33 Discharge instructions given to patient, Instructed on discharge instructions, follow up and referral plans. medication usage, Demonstrated understanding of instructions, follow-up care, medications, Prescriptions given X 2. 02:34 Patient left the ED. rv Signatures: Dispatcher [employer] EDOR Zeferino Navarro MD MD cha Vicente, Ronaldo, RN RN Gunjan Valdes Kyli RN RN kd3 Fadumo Mtz RN RN ha1 Comfort Mcguire bc6
--- NOTE | 2022-08-17 02:14 | EDPHYS ---
Physician Documentation [facility] Name: Allan Cam Age: 77 yrs Sex: Male : 1945 Arrival Date: 08/16/2022 Time: 23:53 Bed 15 Private MD: CHRISTOPHER Physician Zeferino Navarro HPI: 08/17 02:08 This 77 yrs old Black Male presents to ER via Ambulatory with complaints of Urinary janeth Retention. 02:08 The patient presents with urinary symptoms, dribbling of urine, unable to void. Onset: janeth The symptoms/episode began/occurred 1 day(s) ago. Modifying factors: The symptoms are alleviated by nothing, the symptoms are aggravated by nothing. Associated signs and symptoms: The patient has no apparent associated signs or symptoms. Severity of symptoms: At their worst the symptoms were mild, in the emergency department the symptoms are unchanged. The patient has experienced similar episodes in the past, a few times. Historical: - PMHx: 00:21 Diabetes - NIDDM; Hypertension; Prostate Cancer; kd3 - Immunization history:: Adult Immunizations up to date. - Social history:: Smoking status: Patient/guardian denies using tobacco, but has a distant history of tobacco abuse. ROS: 02:09 Constitutional: Negative for fever, chills, and weight loss, Eyes: Negative for injury, janeth pain, redness, and discharge, ENT: Negative for injury, pain, and discharge, Neck: Negative for injury, pain, and swelling, Cardiovascular: Negative for chest pain, palpitations, and edema, Respiratory: Negative for shortness of breath, cough, wheezing, and pleuritic chest pain, Back: Negative for injury and pain, MS/Extremity: Negative for injury and deformity, Skin: Negative for injury, rash, and discoloration, Neuro: Negative for headache, weakness, numbness, tingling, and seizure, Psych: Negative for depression, anxiety, suicide ideation, homicidal ideation, and hallucinations, Allergy/Immunology: Negative for hives, rash, and allergies, Endocrine: Negative for neck swelling, polydipsia, polyuria, polyphagia, and marked weight changes, Hematologic/Lymphatic: Negative for swollen nodes, abnormal bleeding, and unusual bruising. 02:09 Abdomen/GI: Positive for abdominal pain, abdominal cramps. Exam: 02:09 Constitutional: This is a well developed, well nourished patient who is awake, alert, janeth and in no acute distress. Head/Face: Normocephalic, atraumatic. Eyes: Pupils equal round and reactive to light, extra-ocular motions intact. Lids and lashes normal. Conjunctiva and sclera are non-icteric and not injected. Cornea within normal limits. Periorbital areas with no swelling, redness, or edema. ENT: Nares patent. No nasal discharge, no septal abnormalities noted. Tympanic membranes are normal and external auditory canals are clear. Oropharynx with no redness, swelling, or masses, exudates, or evidence of obstruction, uvula midline. Mucous membranes moist. Neck: Trachea midline, no thyromegaly or masses palpated, and no cervical lymphadenopathy. Supple, full range of motion without nuchal rigidity, or vertebral point tenderness. No Meningismus. Chest/axilla: Normal chest wall appearance and motion. Nontender with no deformity. No lesions are appreciated. Cardiovascular: Regular rate and rhythm with a normal S1 and S2. No gallops, murmurs, or rubs. Normal PMI, no JVD. No pulse deficits. Respiratory: Lungs have equal breath sounds bilaterally, clear to auscultation and percussion. No rales, rhonchi or wheezes noted. No increased work of breathing, no retractions or nasal flaring. Abdomen/GI: Soft, non-tender, with normal bowel sounds. No distension or tympany. No guarding or rebound. No evidence of tenderness throughout. Back: No spinal tenderness. No costovertebral tenderness. Full range of motion. Skin: Warm, dry with normal turgor. Normal color with no rashes, no lesions, and no evidence of cellulitis. MS/ Extremity: Pulses equal, no cyanosis. Neurovascular intact. Full, normal range of motion. Neuro: Awake and alert, GCS 15, oriented to person, place, time, and situation. Cranial nerves II-XII grossly intact. Motor strength 5/5 in all extremities. Sensory grossly intact. Cerebellar exam normal. Normal gait. Psych: Awake, alert, with orientation to person, place and time. Behavior, mood, and affect are within normal limits. 02:09 : Male external genitalia: Bladder: distension, that is mild, tenderness, that is mild, Sexual behavior: the patient is not sexually active. Vital Signs: 00:18 Weight 70.31 kg; kd3 00:24 BP 155 / 78; Pulse 74; Resp 15 S; Temp 98.4; Pulse Ox 100% on R/A; ha1 01:34 BP 131 / 58; Pulse 73; Resp 17; Pulse Ox 100% on R/A; rv 02:33 BP 124 / 76; Pulse 71; Resp 17; Temp 98; Pulse Ox 100% ; rv [place] Coma Score: 02:34 Eye Response: spontaneous(4). Motor Response: obeys commands(6). Verbal Response: rv oriented(5). Total: 15. MDM: 00:00 Patient medically screened. janeth 02:10 Differential diagnosis: nonspecific abdominal pain, UTI, urinary retention, janeth prostatitis, urethritis. Data reviewed: vital signs, nurses notes, EMS record, lab test result(s), radiologic studies, CT scan. Consideration of Admission/Observation Escalation of care including admission/observation considered. I considered the following discharge prescriptions or medication management in the emergency department Medications were administered in the Emergency Department. See MAR. Independent interpretation of the following test(s) in the Emergency Department CT Scan: My interpretation is ct stone. Test considered but Not performed: EKG: no ekg. Care significantly affected by the following chronic conditions: Diabetes, Hypertension, Cancer. Counseling: I had a detailed discussion with the patient and/or guardian regarding: the historical points, exam findings, and any diagnostic results supporting the discharge/admit diagnosis, lab results, radiology results, the need for outpatient follow up, for definitive care, a family practitioner, a urologist. 08/17 00:01 Order name: Urinalysis w/ reflexes; Complete Time: 02:07 [facility] 08/17 01:05 Order name: CBC with Diff; Complete Time: 02:07 [facility] 08/17 01:05 Order name: Comprehensive Metabolic Panel; Complete Time: 02:07 [facility] 08/17 01:14 Order name: Urine Culture [facility] 08/17 01:04 Order name: CT Stone Protocol [facility] 08/17 00:01 Order name: Mcgee: note pvr; Complete Time: 01:09 [facility] 08/17 00:01 Order name: Mcgee Leg Bag; Complete Time: 01:09 [facility] Administered Medications: 01:04 Not Given (Duplicate Order): Flomax PO 0.4 mg PO once janeth 01:33 Drug: Rocephin IV 1 grams Route: IV; Rate: per protocol; Site: right antecubital; rv 02:32 Follow up: Response: No adverse reaction rv 01:33 Drug: NS 0.9% IV 500 ml Route: IV; Rate: bolus; Site: right antecubital; rv 02:32 Follow up: IV Status: Completed infusion; IV Intake: 500ml rv 02:32 Drug: LevOfloxacin PO 750 mg Route: PO; rv Disposition Summary: 08/17/22 02:13 Discharge Ordered Location: Home [facility] Problem: new janeth Symptoms: have improved janeth Condition: Stable janeth Diagnosis - Retention of urine, unspecified - PVR 200 janeth - UTI/ Urinary tract infection, site not specified janeth Followup: janeth - With: Private Physician - When: 2 - 3 days - Reason: Recheck today's complaints, Continuance of care, Re-evaluation by your physician Followup: janeth - With: Simón Muñoz MD - When: 2 - 3 days - Reason: Recheck today's complaints, Re-evaluation by your physician Discharge Instructions: - Discharge Summary Sheet janeth - Dysuria janeth - Indwelling Urinary Catheter Care, Adult janeth - Urinary Tract Infection, Adult janeth - Urinary Tract Infection, Adult, [id number] janeth - Acute Urinary Retention, Male, [id number] janeth - Indwelling Urinary Catheter Care, Adult, [id number] [facility] Forms: - Medication Reconciliation Form [facility] - Thank You Letter [facility] - Antibiotic Education [facility] - Prescription Opioid Use [facility] - [email or web address] [facility] Prescriptions: - Flomax 0.4 mg Oral capsule - take 1 capsule by ORAL route every 24 hours; 20 capsule; Refills: 0, Product [facility] Selection Permitted - levofloxacin 500 mg Oral Tablet - take 1 tablet by ORAL route once daily for 8 days; 8 tablet; Refills: 0, [facility] Product Selection Permitted Signatures: Dispatcher [employer] Zeferino Ndiaye MD MD cha Vicente, Ronaldo RN RN Anya Sesay RN RN kd3
[2022-08-17] MEDS ORDERED: levoFLOXacin 750 MG TAB ONE (02:29)
[2022-08-17 02:52] VITALS: O2SAT 100
[2022-08-17 02:57] VITALS: BP 124/76; TEMP 98
--- NOTE | 2022-08-17 21:56 | RAD REPORT ---
EXAM DESCRIPTION: CT Abdomen and Pelvis Without Intravenous Contrast CLINICAL HISTORY: The patient is 77 years old and is Male; ABD PAIN TECHNIQUE: Axial computed tomography images of the abdomen and pelvis without intravenous contrast. Sagittal and coronal reformatted images were created and reviewed. This CT exam was performed usi ng one or more of the following dose reduction techniques: automated exposure control, adjustment o f the mA and/or kV according to patient size, and/or use of iterative reconstruction technique. COMPARISON: CT Abdomen Pelvis dated August 19 2021 FINDINGS: LUNG BASES: Unremarkable. No mass. No consolidation. ABDOMEN: LIVER: The liver is enlarged and homogeneous. GALLBLADDER AND BILE DUCTS: No calcified stones. No ductal dilation. PANCREAS: Unremarkable. No ductal dilation. SPLEEN: Unremarkable. ADRENALS: Unremarkable. No mass. KIDNEYS AND URETERS: A right renal cyst is present. No follow-up imaging is recommended. There is no hydronephrosis or hydroureter of either kidney. No obstructing renal or ureteral calculus is seen . STOMACH AND BOWEL: The stomach is significantly distended with food contents and air. The small b owel is relatively normal in caliber. Stool is present throughout colon. There is no mucosal thickeni ng or evidence of obstruction. A few scattered colonic diverticula are noted without surrounding infl ammation. PELVIS: APPENDIX: The appendix is normal in caliber without surrounding inflammation. BLADDER: Diffuse bladder wall thickening with surrounding inflammation is present. A Mcgee cathet er is present within the bladder. No stones. REPRODUCTIVE: Radiotherapy beads are present within the prostate which is enlarged. ABDOMEN and PELVIS: INTRAPERITONEAL SPACE: Unremarkable. No free air. No significant fluid collection. BONES/JOINTS: No acute fracture. Minimal degenerative changes present. No lytic or blastic lesion s are noted. SOFT TISSUES: A fat-containing umbilical hernia is present. Evidence of prior right hernia repa ir is noted. VASCULATURE: Unremarkable. No abdominal aortic aneurysm. LYMPH NODES: Unremarkable. No enlarged lymph nodes. IMPRESSION: 1. Diffuse bladder wall thickening with surrounding inflammation which may be seen wit h cystitis. 2. Radiotherapy beads within the enlarged prostate. Electronically signed by: Es Dykes MD 08/17/2022 2:32 AM CDT Due to temporary technical issues with the PACS/Fluency reporting system, reports are being signed by the in house radiologists without review as a courtesy to insure prompt reporting. The interpreting radiologist is fully responsible for the content of the report.
== END 2022-08-17 02:34 | disposition home or self-care (01) ==
LOC: ER 23:53
DX: N39.0 Urinary tract infection, site not specified (principal); I10 Essential (primary) hypertension; Z85.46 Personal history of malignant neoplasm of prostate
CPT/HCPCS: 87088; 85025; 81001; 87086; 36415; 80053; 76377; 74176; J7040; J0696

== ENCOUNTER 2024-11-08 21:43 | Emergency (ER) | payer OTHER ==
[2024-11-08] MEDS ORDERED: NA CHLORIDE 0.9% 500 ML ONE (22:31)
[2024-11-08 22:45] LABS: Absolute Lymphocytes (CBC) 1.4 K/uL (0.7-4.9); Hematocrit 35.2 % (39.6-49.0); Hemoglobin 11.5 g/dL (13.6-17.9); MCH 26.2 pg (27.0-35.0); MCHC 32.6 g/dL (32.0-36.0); MCV 80.4 fL (80-100); MPV 8.8 fL (7.6-11.3); Nucleated RBC Absolute Count 0.0 (0-0); Nucleated Red Blood Cells % 0.1 % (0-0); RBC Red Blood Cell Count 4.38 M/uL (4.33-5.43); White Blood Count 6.20 thou/uL (4.3-10.9)
[2024-11-08 22:53] LABS: PT Prothrombin Time 13.1 SECONDS (10-13.0); Protime INR 1.16
[2024-11-08 23:01] LABS: ALT/SGPT 27.0 U/L (16-61); AST/SGOT 17.0 U/L (15-37); Albumin 3.9 g/dL (3.4-5.0); Albumin/Globulin Ratio 1.1 (1.1-1.8); Alkaline Phosphatase 48.0 U/L (45-117); Anion Gap 9.1 mEq/L (5.0-15.0); BUN Blood Urea Nitrogen 38.0 mg/dL (7-18); Globulin 3.6 g/dL (2.3-3.5); Glucose Level 130.0 mg/dL (74-106); Potassium 4.1 mEq/L (3.5-5.1)
[2024-11-08] MEDS ORDERED: MORPHINE 4 MG/ML SYR ONE (23:06)
[2024-11-08] MEDS ORDERED: ONDANSETRON 4 MG/2 ML VIAL ONE (23:06)
[2024-11-08] MEDS ORDERED: CEFTRIAXONE 1000 MG/VIAL ONE (23:18)
--- NOTE | 2024-11-09 00:12 | RAD REPORT ---
INDICATION: pain COMPARISON: No existing relevant imaging studies are available TECHNIQUE: Unenhanced CT of the abdomen and pelvis performed per protocol. Oral contrast was not administered. M ultiplanar reconstructions were provided. Dose reduction techniques were utilized for this exam including automated exposure control, adjustmen ts to mA and/or kV according to patient's size, and the use of iterative reconstruction techniques. FINDINGS: Lack of intravenous contrast limits evaluation of the viscera and vasculature. LOWER CHEST: Small partially visualized bulla within the right lower lobe. Lung bases otherwise clear . LIVER: Unremarkable. SPLEEN: Unremarkable. PANCREAS: Unremarkable. ADRENALS: Unremarkable. KIDNEYS: Simple right renal cyst. No follow-up imaging recommended. No hydronephrosis. GALLBLADDER: Unremarkable. VESSELS: Scattered atherosclerotic plaque within the abdominal aorta and iliac vessels without aneury smal dilatation. BOWEL: Colonic diverticulosis without evidence of diverticulitis. Bowel otherwise unremarkable. APPENDIX: Normal. FLUID: No free fluid or abnormal fluid collection. ADENOPATHY: No pathologic adenopathy. BLADDER: Circumferential thickening of the urinary bladder wall with perivesicular inflammatory stran ding. Mcgee catheter in place. PELVIS: Prostate is enlarged. BONES: No acute bony abnormality. Multilevel degenerative changes throughout the spine. SOFT TISSUES: Small fat-containing umbilical hernia. Postsurgical changes involving the right inguina l region. IMPRESSION: 1. Cystitis. 2. Prostatomegaly. 3. Colonic diverticulosis without evidence of diverticulitis. Electronically signed by: Marlo Green DO 11/09/2024 12:08 AM CDT NR Due to temporary technical issues with the PACS/[employer] reporting system, reports are being wallace d by the in-house radiologist without review as a courtesy to ensure prompt reporting the interpreting radiologist is fully responsible for the content of the report. Transcribed Date/Time: 11/09/2024 12:12 AM
[2024-11-09] MEDS ORDERED: TAMSULOSIN 0.4 MG SR CAP ONE (00:53)
--- NOTE | 2024-11-09 01:45 | ER ---
Nurse's Notes [facility] Name: Allan Cam Age: 79 yrs Sex: Male : 1945 Arrival Date: 11/08/2024 Time: 21:43 Bed 24 Private MD: Diagnosis: Acute cystitis with hematuria;Mechanical complication of urinary (indwelling) catheter;UTI/ Urinary tract infection, site not specified Presentation: 11/08 21:50 Chief complaint: Patient states: HE HAS A CATHETER AND NOTICED BLOOD IN THE TUBE AND dd2 BAG AND BEGAN HAVING PAIN. REPORTS LEAKING AROUND THE CATHETER. PT REPORTS HX PROSTATE CA. Coronavirus screen: At this time, the client does not indicate any symptoms associated with coronavirus-19. Ebola Screen: No symptoms or risks identified at this time. Initial Sepsis Screen: Does the patient meet any 2 criteria? No. Patient's initial sepsis screen is negative. Does the patient have a suspected source of infection? No. Patient's initial sepsis screen is negative. Risk Assessment: Do you want to hurt yourself or someone else? Patient reports no desire to harm self or others. Onset of symptoms was November 08, 2024. 21:50 Method Of Arrival: Ambulatory dd2 21:50 Acuity: MIO 3 dd2 Triage Assessment: 21:52 General: Appears uncomfortable, Behavior is calm, cooperative, appropriate for age. dd2 Pain: Complains of pain in suprapubic area. : Reports pain in suprapubic area BLOOD IN URINE. Historical: - Allergies: 21:52 No Known Allergies; dd2 - PMHx: 21:52 Diabetes - NIDDM; Hypertension; Prostate Cancer; dd2 - PSHx: 21:52 HERNIA REPAIR (Prostate Cancer); dd2 - Immunization history:: Adult Immunizations up to date. - Infectious Disease History:: Denies. - Social history:: Smoking status: Patient denies any tobacco usage or history of. Screenin:12 [facility] ED Fall Risk Assessment (Adult) History of falling in the last 3 months, jb4 including since admission No falls in past 3 months (0 pts) Confusion or Disorientation No (0 pts) Intoxicated or Sedated No (0 pts) Impaired Gait No (0 pts) Mobility Assist Device Used No (0 pt) Altered Elimination Yes (1 pt) Score/Fall Risk Level 0 - 2 = Low Risk Oriented to surroundings, Maintained a safe environment. Abuse screen: Denies threats or abuse. Nutritional screening: No deficits noted. Tuberculosis screening: No symptoms or risk factors identified. Assessment: 22:00 General: Appears in no apparent distress. comfortable, Behavior is calm, cooperative, jb4 appropriate for age. Pain: Complains of pain in back and pelvis Pain does not radiate. Pain currently is 3 out of 10 on a pain scale. at worst was 10 out of 10 on a pain scale. Neuro: Level of Consciousness is awake, alert, obeys commands, Oriented to person, place, time, situation. Cardiovascular: Patient's skin is warm and dry. Respiratory: Airway is patent Respiratory effort is even, unlabored, Respiratory pattern is regular, symmetrical. : Tamayo in place to gravity drainage Reports discharge, bloody. Derm: Skin is intact, Skin is pink, warm \T\ dry. 23:12 Reassessment: Patient appears in no apparent distress at this time. Patient and/or jb4 family updated on plan of care and expected duration. Pain level reassessed. Patient is alert, oriented x 3, equal unlabored respirations, skin warm/dry/pink. 11/09 00:00 Reassessment: Patient appears in no apparent distress at this time. Patient and/or jb4 family updated on plan of care and expected duration. Pain level reassessed. Patient is alert, oriented x 3, equal unlabored respirations, skin warm/dry/pink. 01:56 Reassessment: Patient appears in no apparent distress at this time. Patient and/or jb4 family updated on plan of care and expected duration. Pain level reassessed. Patient is alert, oriented x 3, equal unlabored respirations, skin warm/dry/pink. Pt no longer reports pain after tmaayo irrigations. Family reports pt has not had a spasm sent. Vital Signs: 11/08 21:50 BP 155 / 70; Pulse 53; Resp 17; Temp 98.2; Pulse Ox 100% ; Weight 79.38 kg; Pain 3/10; dd2 23:12 BP 153 / 59; Pulse 53; Resp 16; Pulse Ox 100% on R/A; jb4 11/09 00:45 BP 149 / 61; Pulse 47; Resp 16; Pulse Ox 100% on R/A; jb4 09/18 21:50 Pain Scale: Adult dd2 ED Course: 11/08 21:46 Patient arrived in ED. sj2 21:51 Zeferino Navarro MD is Attending Physician. janeth 21:52 Triage completed. dd2 21:52 Arm band placed on right wrist. dd2 22:18 Initial lab(s) drawn, by [facility], sent to lab. Inserted saline lock: 20 gauge in right ts3 antecubital area, using aseptic technique. Blood collected. Flushed with 10 mL NS. 22:46 Stone Protocol In Process Unspecified. EDMS 23:03 Nikolai Bhatti, BETTIE is Primary Nurse. 4 11/09 01:43 Simón Muñoz MD is Referral Physician. [facility] 02:07 Patient has correct armband on for positive identification. Bed in low position. Call jb4 light in reach. Side rails up X 1. Provided Education on: discharge instructions.. 02:07 No provider procedures requiring assistance completed. IV discontinued, intact, jb4 bleeding controlled, No redness/swelling at site. Pressure dressing applied. Administered Medications: 11/08 22:58 Drug: NS 0.9% IV 500 ml 500 ml IV at 1 bolus once; to be given as a bolus over 30 jb4 minutes Volume: 500 ml; Route: IV; Rate: 1 bolus; Site: right antecubital; 23:10 Drug: morphine IVP or IV 2 mg IVP once over 4 mins Route: IVP; Infused Over: 4 mins; jb4 Site: right antecubital; 11/09 00:00 Follow up: Response: No adverse reaction; Marked relief of symptoms; Pain is decreased [facility] 11/08 23:10 Drug: morphine IVP or IV 2 mg IVP once over 4 mins Route: IVP; Infused Over: 4 mins; jb4 Site: right antecubital; 11/09 00:00 Follow up: Response: No adverse reaction; Marked relief of symptoms; Pain is decreased [facility] 11/08 23:10 Drug: Ondansetron IVP 4 mg IVP once; over 2 minutes Route: IVP; Site: right antecubital;jb4 11/09 00:00 Follow up: Response: No adverse reaction [facility] 11/08 23:53 Drug: Rocephin IV 1 grams IV at per protocol once; Given slow IV push per pharmacy jb4 instructions Route: IV; Rate: per protocol; Site: right antecubital; 11/09 00:57 Drug: Flomax PO 0.4 mg PO once Route: PO; jb4 01:47 Follow up: Response: No adverse reaction jb4 01:55 Drug: Ciprofloxacin PO 500 mg PO once Route: PO; jb4 01:55 Follow up: Response: Medication administered at discharge. jb4 Medication: 00:45 VIS not applicable for this client. jb4 Outcome: 01:45 Discharge ordered by . janeth 02:07 Discharged to home ambulatory, jb4 02:07 Condition: stable 02:07 Discharge instructions given to patient, family, Instructed on discharge instructions, follow up and referral plans. medication usage, Demonstrated understanding of instructions, follow-up care, medications, Prescriptions given X 3, 02:07 Patient left the ED. jb4 Signatures: Dispatcher [employer] EDMS Zeferino Navarro MD MD cha Bryson, James RN RN jb4 RUSTAM PATEL RN RN dd2 Karine Ward2 Evelin Flanagan 3
--- NOTE | 2024-11-09 01:45 | EDPHYS ---
Physician Documentation [facility] Name: Allan Cam Age: 79 yrs Sex: Male : 1945 Arrival Date: 11/08/2024 Time: 21:43 Bed 24 Private MD: ED Physician Zeferino Navarro HPI: 11/09 00:03 This 79 yrs old Black Male presents to ER via Ambulatory with complaints of Blood In janeth Catheter. 00:03 The patient presents with a Tamayo catheter problem, urinary symptoms, retention, janeth hematuria. Onset: The symptoms/episode began/occurred 1 day(s) ago. Modifying factors: The symptoms are alleviated by nothing, the symptoms are aggravated by nothing. Associated signs and symptoms: The patient has no apparent associated signs or symptoms. Severity of symptoms: At their worst the symptoms were moderate, in the emergency department the symptoms are unchanged. Historical: - Allergies: 11/08 21:52 No Known Allergies; dd2 - PMHx: 21:52 Diabetes - NIDDM; Hypertension; Prostate Cancer; dd2 - PSHx: 21:52 HERNIA REPAIR (Prostate Cancer); dd2 - Immunization history:: Adult Immunizations up to date. - Infectious Disease History:: Denies. - Social history:: Smoking status: Patient denies any tobacco usage or history of. ROS: 11/09 00:04 Constitutional: Negative for fever, chills, and weight loss, Eyes: Negative for injury, janeth pain, redness, and discharge, ENT: Negative for injury, pain, and discharge, Neck: Negative for injury, pain, and swelling, Cardiovascular: Negative for chest pain, palpitations, and edema, Respiratory: Negative for shortness of breath, cough, wheezing, and pleuritic chest pain, Abdomen/GI: Negative for abdominal pain, nausea, vomiting, diarrhea, and constipation, Back: Negative for injury and pain, MS/Extremity: Negative for injury and deformity, Skin: Negative for injury, rash, and discoloration, Neuro: Negative for headache, weakness, numbness, tingling, and seizure, Psych: Negative for depression, anxiety, suicide ideation, homicidal ideation, and hallucinations, Allergy/Immunology: Negative for hives, rash, and allergies, Endocrine: Negative for neck swelling, polydipsia, polyuria, polyphagia, and marked weight changes, Hematologic/Lymphatic: Negative for swollen nodes, abnormal bleeding, and unusual bruising, : Positive for pelvic pain, hematuria, Exam: 00:04 Constitutional: This is a well developed, well nourished patient who is awake, alert, janeth and in no acute distress. Head/Face: Normocephalic, atraumatic. Eyes: Pupils equal round and reactive to light, extra-ocular motions intact. Lids and lashes normal. Conjunctiva and sclera are non-icteric and not injected. Cornea within normal limits. Periorbital areas with no swelling, redness, or edema. ENT: Nares patent. No nasal discharge, no septal abnormalities noted. Tympanic membranes are normal and external auditory canals are clear. Oropharynx with no redness, swelling, or masses, exudates, or evidence of obstruction, uvula midline. Mucous membranes moist. Neck: Trachea midline, no thyromegaly or masses palpated, and no cervical lymphadenopathy. Supple, full range of motion without nuchal rigidity, or vertebral point tenderness. No Meningismus. Chest/axilla: Normal chest wall appearance and motion. Nontender with no deformity. No lesions are appreciated. Cardiovascular: Regular rate and rhythm with a normal S1 and S2. No gallops, murmurs, or rubs. Normal PMI, no JVD. No pulse deficits. 00:09 Respiratory: Exam negative for acute changes, [facility] 00:09 Abdomen/GI: Inspection: distension, that is mild, Bowel sounds: normal, Palpation: abdomen is soft and non-tender, Liver: no appreciated palpable abnormalities, Hernia: not appreciated, 00:09 : CVA tenderness, is absent, Male external genitalia: normal, with tamayo, Vital Signs: 11/08 21:50 BP 155 / 70; Pulse 53; Resp 17; Temp 98.2; Pulse Ox 100% ; Weight 79.38 kg; Pain 3/10; dd2 23:12 BP 153 / 59; Pulse 53; Resp 16; Pulse Ox 100% on R/A; jb4 11/09 00:45 BP 149 / 61; Pulse 47; Resp 16; Pulse Ox 100% on R/A; jb4 11/08 21:50 Pain Scale: Adult dd2 MDM: 11/08 21:51 Medical Screening Exam initiated [facility] 11/08 22:39 Order name: Comprehensive Metabolic Panel; Complete Time: 23:06 EDOR 11/08 22:39 Order name: CBC with Automated Diff; Complete Time: 23:06 EDOR 11/08 22:39 Order name: Protime (+INR); Complete Time: 23:06 EDOR 11/08 22:10 Order name: Stone Protocol; Complete Time: 01:34 EDOR 11/08 23:07 Order name: Tamayo: EXCHANGE; Complete Time: 23:38 janeth 11/09 00:03 Order name: Misc. Order: irrigate bladder; Complete Time: 00:57 janeth Administered Medications: 22:58 Drug: NS 0.9% IV 500 ml 500 ml IV at 1 bolus once; to be given as a bolus over 30 jb4 minutes Volume: 500 ml; Route: IV; Rate: 1 bolus; Site: right antecubital; 23:10 Drug: morphine IVP or IV 2 mg IVP once over 4 mins Route: IVP; Infused Over: 4 mins; 4 Site: right antecubital; 11/09 00:00 Follow up: Response: No adverse reaction; Marked relief of symptoms; Pain is decreased [facility] 11/08 23:10 Drug: morphine IVP or IV 2 mg IVP once over 4 mins Route: IVP; Infused Over: 4 mins; jb4 Site: right antecubital; 11/09 00:00 Follow up: Response: No adverse reaction; Marked relief of symptoms; Pain is decreased [facility] 11/08 23:10 Drug: Ondansetron IVP 4 mg IVP once; over 2 minutes Route: IVP; Site: right antecubital;[facility] 11/09 00:00 Follow up: Response: No adverse reaction [facility] 11/08 23:53 Drug: Rocephin IV 1 grams IV at per protocol once; Given slow IV push per pharmacy jb instructions Route: IV; Rate: per protocol; Site: right antecubital; 11/09 00:57 Drug: Flomax PO 0.4 mg PO once Route: PO; 4 01:47 Follow up: Response: No adverse reaction [facility] 01:55 Drug: Ciprofloxacin PO 500 mg PO once Route: PO; jb4 01:55 Follow up: Response: Medication administered at discharge. 4 Disposition Summary: 11/09/24 01:45 Discharge Ordered Notes: Location: Home janeth Problem: new janeth Symptoms: have improved janeth Condition: Stable janeth Diagnosis - Acute cystitis with hematuria janeth - Mechanical complication of urinary (indwelling) catheter janeth - UTI/ Urinary tract infection, site not specified janeth Followup: janeth - With: Private Physician - When: 2 - 3 days - Reason: Recheck today's complaints, Re-evaluation by your physician Followup: janeth - With: Simón Muñoz MD - When: 2 - 3 days - Reason: Recheck today's complaints, Continuance of care, Re-evaluation by your physician Discharge Instructions: - Discharge Summary Sheet janeth - Dysuria janeth - Indwelling Urinary Catheter Care, Adult janeth - Hematuria, Adult janeth - Urinary Tract Infection, Adult janeth - Urinary Tract Infection, Adult, [id number] janeth - Indwelling Urinary Catheter Care, Adult, [id number] [facility] Forms: - Medication Reconciliation Form [facility] - Antibiotic Education janeth - Prescription Opioid Use [facility] - Patient Portal Instructions [facility] - Leadership Thank You Letter [facility] Prescriptions: - cefdinir 300 mg Oral capsule - take 1 capsule ORAL route every 12 hours for 5 days; 10 capsule; Refills: 0, [facility] Product Selection Permitted - Flomax 0.4 mg Oral capsule - take 1 capsule ORAL route daily; 20 capsule; Refills: 0, Product Selection [facility] Permitted - Cipro 500 mg Oral Tablet - take 1 tablet ORAL route every 12 hours for 7 days; 14 tablet; Refills: 0, [facility] Product Selection Permitted Signatures: Dispatcher [employer] Zeferino Ndiaye MD MD cha Bryson, James, RN RN jb4 RUSTAM PATEL RN RN dd2 Corrections: (The following items were deleted from the chart) 00:02 00:02 UA Rfx Hussain Cult if indicated+U.LAB.BRZ ordered. [facility] 01:49 11/08 21:55 CBC+H.LAB.BRZ ordered. [facility] 11/09 01:49 11/08 21:55 COMPREHENSIVE METABOLIC PANEL+C.LAB.BRZ ordered. [facility] 11/09 01:49 11/08 21:55 PROTIME (+INR)+COAG.LAB.BRZ ordered. [facility] 11/09 01:57 11/08 21:55 Stone Protocol+CT.RAD.BRZ ordered. [facility]
[2024-11-09] MEDS ORDERED: CIPROFLOXACIN HCL 500 MG TAB ONE (01:49)
[2024-11-09 02:31] VITALS: TEMP 98.2; O2SAT 100
[2024-11-09 02:34] VITALS: BP 149/61
== END 2024-11-09 02:07 | disposition home or self-care (01) ==
LOC: ER 21:43
DX: N30.01 Acute cystitis with hematuria (principal); T83.098A Other mechanical complication of other urinary catheter, initial encounter
CPT/HCPCS: 85025; 36415; 85610; 80053; 76377; 74176; 96375; 96374; 99284; J2405; J7040; J0696